=== PATIENT | male | born 1965 | race Two or more races ===

== ENCOUNTER 2017-01-16 06:47 | Emergency (ER) | payer SELFPAY ==
--- NOTE | 2017-01-16 07:05 | ER Document Report ---
HPI - HPI Patient complains to provider of: Medication refill, Onset: Other - 2 days Pain Level: Denies Context: 51 yo obese male here for medication refill, takes lisinopril 20mg daily, ran out 2 weeks ago. Has all over headache, gradual onset 4/5 which he gets when his blood pressure is high. No parathesia, dizziness, chest pain or shortness of breath. No renal hx. Associated Symptoms: Headache Exacerbated by: Denies Relieved by: Denies - ROS ROS below otherwise negative: Yes Systems Reviewed and Negative: Yes All other systems reviewed and negative Past Medical History - General Information source: Patient - Social History Smoking Status: Former Smoker Frequency of alcohol use: None Drug Abuse: None Lives with: Family Family History: Reviewed & Not Pertinent Patient has suicidal ideation: No Patient has homicidal ideation: No - Past Medical History Cardiac Medical History: Reports: Hx Hypertension Renal/ Medical History: Denies: Hx Peritoneal Dialysis Surgical Hx: Negative Vertical Provider Document - CONSTITUTIONAL Agree With Documented VS: Yes Exam Limitations: No Limitations General Appearance: No Apparent Distress - INFECTION CONTROL TRAVEL OUTSIDE OF THE [place] IN LAST 30 DAYS: No - HEENT HEENT: Normal ENT Exam - NECK Neck: Supple - RESPIRATORY Respiratory: Breath Sounds Normal, No Respiratory Distress O2 Sat by Pulse Oximetry: 96 - CARDIOVASCULAR Cardiovascular: Regular Rate, Regular Rhythm - GI/ABDOMEN Gastrointestinal: Abdomen Soft, Abdomen Non-Tender - MUSCULOSKELETAL/EXTREMETIES Musculoskeletal/Extremeties: MAEW, FROM - NEURO Level of Consciousness: Awake, Alert, Appropriate - DERM Integumentary: Warm, Dry, No Rash Course - Re-evaluation Re-evalutation: 01/16/17 08:18 Headache down to 2/5 and blood pressure is lower. Asked the nurse to take a blood pressure with an appropriate sized cuff. The manual is 186/110 when it was taken at the wrist. - Vital Signs Vital signs: Temp Pulse Resp BP Pulse Ox 98.3 F 66 18 234/123 H 96 01/16/17 06:53 01/16/17 06:53 01/16/17 06:53 01/16/17 06:53 01/16/17 06:53 Discharge - Discharge Clinical Impression: Medication refill High blood pressure Qualifiers: Hypertension type: essential hypertension Qualified Code(s): I10 - Essential ( primary) hypertension Headache Qualifiers: Headache type: unspecified Headache chronicity pattern: acute headache Intractability: not intractable Qualified Code(s): R51 - Headache Condition: Good Disposition: HOME, SELF-CARE Instructions: Angiotensin Converting Enzyme Inhibitor Medication ([facility]), Family Physicians / Practices, High Blood Pressure ([facility]), High Blood Pressure, Requiring Treatment ([facility]), Hydrochlorothiazide ([facility]) Additional Instructions: see family practice doctor for you medication to er any concerns tylenol and motrin for headache see neurologist if headaches persists Please complete the patient satisfaction survey if you get one, and return it.. If you do not receive a survey, then you can go to the [facility] website, [email or web address] and place your comments about your very good care. Thank you very much. It was a pleasure being your medical provider today. Prescriptions: Lisinopril/Hydrochlorothiazide [Lisinopril-Hctz 20-12.5 mg Tab] 1 each PO DAILY #30 tablet
[2017-01-16] MEDS ORDERED: ACETAMINOPHEN 325 MG TABLET PO ONE (07:15)
[2017-01-16] MEDS ORDERED: IBUPROFEN 800 MG TABLET PO ONE (07:15)
[2017-01-16 08:31] VITALS: BP 171/103
== END 2017-01-16 08:34 | disposition home or self-care (01) ==
LOC: ER 06:47
DX: I10 Essential (primary) hypertension (principal); Z87.891 Personal history of nicotine dependence
CPT/HCPCS: 99281

== ENCOUNTER 2018-04-06 15:57 | Emergency (ER) | payer MEDICAID ==
[2018-04-06 17:15] LABS: A TYPE INFLUENZA AG NEGATIVE (NEGATIVE); B INFLUENZA AG NEGATIVE (NEGATIVE)
[2018-04-06] MEDS ORDERED: MAG HYDROX/AL HYDROX/SIMETH SUSP 30 ML UDCUP PO ONE (18:33)
[2018-04-06] MEDS ORDERED: LIDOCAINE 2% VISCOUS SOLN 20 ML UDCUP PO ONE (18:33)
[2018-04-06] MEDS ORDERED: METOCLOPRAMIDE HCL ORAL SOLN 10 MG/10 ML UDCUP PO ONE (18:34)
--- NOTE | 2018-04-06 18:39 | ER Document Report ---
HPI - HPI Time Seen by Provider: 04/06/18 18:33 Pain Level: 3 Notes: Patient is a 53-year-old male who presents with multiple complaints. Patient is accompanied by his 3 children, states he and all of them have had low-grade fevers, cough and congestion that started yesterday. Patient also reports epigastric pain ever since he ate a bowl of chili last night for dinner. Patient reports history of acid reflux. Denies any nausea, vomiting or diarrhea. Denies any chest pain. Past Medical History - General Information source: Patient - Social History Smoking Status: Never Smoker Frequency of alcohol use: None Drug Abuse: None Family History: Reviewed & Not Pertinent - Past Medical History Cardiac Medical History: Reports: Hx Hypertension Renal/ Medical History: Denies: Hx Peritoneal Dialysis Vertical Provider Document - CONSTITUTIONAL Notes: PHYSICAL EXAMINATION: GENERAL: Well-appearing, well-nourished and in no acute distress. HEAD: Atraumatic, normocephalic. EYES: Pupils equal round extraocular movements intact, conjunctiva are normal. ENT: Nares patent NECK: Normal range of motion LUNGS: No respiratory distress Musculoskeletal: Normal range of motion NEUROLOGICAL: Normal speech, normal gait. PSYCH: Normal mood, normal affect. SKIN: Warm, Dry, normal turgor, no rashes or lesions noted. - INFECTION CONTROL TRAVEL OUTSIDE OF THE [place] IN LAST 30 DAYS: No Course - Re-evaluation Re-evalutation: EKG was performed, results are sinus rhythm, no ST segment elevations or depressions. Patient was given a GI cocktail, states results solution of his epigastric pain. Otherwise physical examination is unremarkable, likely viral illness consistent with his children's examinations as well. Patient will be discharged home in stable condition. - Vital Signs Vital signs: Temp Pulse Resp BP Pulse Ox 98.9 F 73 20 178/99 H 96 04/06/18 16:12 04/06/18 16:12 04/06/18 16:12 04/06/18 16:12 04/06/18 16:12 Discharge - Discharge Clinical Impression: Viral illness GERD (gastroesophageal reflux disease) Qualifiers: Esophagitis presence: without esophagitis Qualified Code(s): K21.9 - Gastro- esophageal reflux disease without esophagitis Condition: Stable Disposition: HOME, SELF-CARE Additional Instructions: Reflux Disease (GERD) Gastro-Esophageal Reflux Disease (GERD) is caused by stomach acid refluxing back up into the esophagus. The valve at the end of the esophagus may be weak. This is common in persons with a hiatal hernia. GERD symptoms can include indigestion, chest pain, heartburn, or food "sticking." Certain foods, alcohol, and aspirin can make GERD worse. Treatment depends on the severity. Usually, antacids or acid-suppressing medicines are used. When the esophagus is acutely inflamed, the physician will often prescribe membrane-protective drugs such as Carafate. Some patients benefit from medication such as Reglan that tightens the valve at the top of the stomach. Avoid those foods that bring on your symptoms. For many people, these foods are coffee, chocolate, onions, garlic, and carbonated drinks. Don't use alcohol, aspirin, caffeine, or tobacco. Don't eat late at night -- within 4 hours of bedtime. Don't over-eat. If necessary, elevate the head of your bed about 4 inches so that stomach acid will not roll up into your esophagus. Call the doctor if you develop severe chest pain, inability to swallow fluids, fever, or worsening symptoms. UPPER RESPIRATORY ILLNESS: You have a viral infection of the respiratory passages -- a "cold." This common infection causes nasal congestion, drainage, and often sore throat and cough. It is highly contagious. The disease usually lasts about 10 to 14 days. There is no "cure" for the viral infection -- it must run its course. If there is a complication, such as bacterial infection in the nose, sinuses, middle ear, or bronchial tubes, antibiotics may be required. The antibiotics won't affect the virus. Drink plenty of fluids. A humidifier may help. An expectorant medication or decongestant may make you more comfortable. Use acetaminophen or ibuprofen for fever or aches. See the doctor if fever persists over two days, if there is any significant worsening of your symptoms, or if you simply fail to improve as expected. FOLLOW-UP CARE: If you have been referred to a physician for follow-up care, call the physician s office for an appointment as you were instructed or within the next two days. If you experience worsening or a significant change in your symptoms, notify the physician immediately or return to the Emergency Department at any time for re-evaluation. Please purchase an [id number] cough and cold medicine to help with your symptoms. Try to refrain from eating spicy or acidic foods. These may bring on worsening symptoms of the gastric reflux. Take the omeprazole as prescribed. This is also available [id number]. Follow-up with your primary care provider in the next 3-5 days for follow-up. Prescriptions: Lisinopril/Hydrochlorothiazide [Lisinopril-Hctz 20-12.5 mg Tab] 1 each PO DAILY #30 tablet Omeprazole 40 mg PO DAILY #30 capsule.
[2018-04-06 19:38] VITALS: BP 183/90
--- NOTE | 2018-04-07 10:42 | EKG REPORT ---
SEVERITY:- ABNORMAL ECG - SINUS RHYTHM FIRST DEGREE AV BLOCK INCOMPLETE RIGHT BUNDLE BRANCH BLOCK LEFT VENTRICULAR HYPERTROPHY : Confirmed by: Mikie Carrillo 07-Apr-2018 10:41:07
== END 2018-04-06 19:39 | disposition home or self-care (01) ==
LOC: ER 15:57
DX: B34.9 Viral infection, unspecified (principal); K21.9 Gastro-esophageal reflux disease without esophagitis; R50.9 Fever, unspecified; R05 Cough; R68.89 Other general symptoms and signs; I10 Essential (primary) hypertension
CPT/HCPCS: 93005; 99284; 87804; 93010; J3490 ×3

== ENCOUNTER 2018-04-27 11:19 | Day surgery (SDC) | payer MEDICAID ==
[2018-04-27] MEDS ORDERED: ONDANSETRON HCL INJ/PF 4 MG/2 ML SDV ONE (11:32)
[2018-04-27] MEDS ORDERED: DIPHENHYDRAMINE HCL 50 MG/ML VIAL ONE (11:32)
[2018-04-27] MEDS ORDERED: GLUCAGON,HUMAN RECOMB 1 MG INJ ONE (11:33)
[2018-04-27] MEDS ORDERED: FLUMAZENIL INJ 0.5 MG/5 ML VIAL ONE (11:33)
[2018-04-27] MEDS ORDERED: NALOXONE HCL INJ/PF 0.4 MG/1 ML SDV ONE (11:33)
[2018-04-27] MEDS ORDERED: EPINEPHRINE INJ 1 MG/10 ML DISP.SYRIN ONE (11:33)
[2018-04-27] MEDS: MIDAZOLAM 2 MG/2 ML INJ ONE ×3 (12:20→12:34)
[2018-04-27] MEDS: FENTANYL CITRATE INJ/PF 100 MCG/2 ML AMPUL ONE ×3 (12:22→12:30)
--- NOTE | 2018-04-27 12:40 | Operative Report ---
Operative Report DATE OF SURGERY: 04/27/18 Operative Report: The risks benefits and alternatives of the procedure explained to the patient in detail and informed consent is obtained .A GIF Olympus video scope was inserted into the patient's mouth and hypopharynx, the esophagus is identified intubated and insufflated, the scope was then advanced through the esophagus stomach and duodenum. retroflexion maneuver is done the esophagus stomach and first and second portions of the duodenum examined PREOPERATIVE DIAGNOSIS: Dysphagia POSTOPERATIVE DIAGNOSIS: Schatzki's ring status post breakage. Hiatal hernia. Gastritis status post biopsy for Helicobacter pylori. Duodenitis OPERATION: EGD with biopsy SURGEON: CORRINA SHERWOOD ANESTHESIA: Moderate Sedation - 5 mg of Versed, 100 mcg of fentanyl. Conscious sedation monitoring time 30 minutes. TISSUE REMOVED OR ALTERED: As noted above. COMPLICATIONS: None. ESTIMATED BLOOD LOSS: None. INTRAOPERATIVE FINDINGS: As noted above. PROCEDURE: Patient tolerated the procedure well. No immediate postprocedure comp occasions are noted. Patient discharged in good condition. Discharge date 04/27/2018. Discharge diet: Regular. Discharge activity: Regular. 2-3-week follow-up to discuss findings. Patient is to call the office or proceed to the emergency room should there be any further problems or questions. We will wait on the pathology.
[2018-04-27 13:46] VITALS: BP 127/71
== END 2018-04-27 13:50 | disposition home or self-care (01) ==
LOC: END 11:19
PROVIDERS: ATTEND Internal Medicine Gastroenterology
DX: K22.2 Esophageal obstruction (principal); K44.9 Diaphragmatic hernia without obstruction or gangrene; K29.70 Gastritis, unspecified, without bleeding; K29.80 Duodenitis without bleeding; R13.10 Dysphagia, unspecified
CPT/HCPCS: 43239; 88342 ×2; 88305 ×2; J2250; J3010; J0171; J1200; J1610; J2310; J2405; J3490

== ENCOUNTER 2018-08-29 11:21 | Day surgery (SDC) | payer MEDICAID ==
[2018-08-29] MEDS ORDERED: FLUMAZENIL INJ 0.5 MG/5 ML VIAL ONE (11:38)
[2018-08-29] MEDS ORDERED: GLUCAGON,HUMAN RECOMB 1 MG INJ ONE (11:38)
[2018-08-29] MEDS ORDERED: DIPHENHYDRAMINE HCL 50 MG/ML VIAL ONE (11:38)
[2018-08-29] MEDS ORDERED: EPINEPHRINE INJ 1 MG/10 ML DISP.SYRIN ONE (11:38)
[2018-08-29] MEDS ORDERED: ONDANSETRON HCL INJ/PF 4 MG/2 ML SDV ONE (11:38)
[2018-08-29] MEDS ORDERED: NALOXONE HCL INJ/PF 0.4 MG/1 ML SDV ONE (11:38)
[2018-08-29] MEDS: MIDAZOLAM 2 MG/2 ML INJ ONE ×3 (12:27→12:39)
[2018-08-29] MEDS: FENTANYL CITRATE INJ/PF 100 MCG/2 ML AMPUL ONE ×2 (12:29→12:31)
--- NOTE | 2018-08-29 14:35 | Operative Report ---
Operative Report DATE OF SURGERY: 08/29/18 Operative Report: The risks benefits and alternatives of the procedure explained to the patient in detail and informed consent is obtained.A GIF Olympus video scope was inserted into the patient's mouth and hypopharynx, the esophagus is identified intubated and insufflated, the scope was then advanced through the esophagus stomach and duodenum, retroflexion maneuver is done, the esophagus stomach and first and second portions of the duodenum examined PREOPERATIVE DIAGNOSIS: Dysphagia POSTOPERATIVE DIAGNOSIS: Schatzki's ring status post breakage. Hiatal hernia. Gastritis status post biopsy for Helicobacter pylori. Sensitive gag reflex OPERATION: EGD with biopsy SURGEON: CORRINA SHERWOOD ANESTHESIA: Moderate Sedation - 50 mg of fentanyl, 4 mg of Versed, conscious sedation monitoring time is 30 minutes. TISSUE REMOVED OR ALTERED: As noted above. COMPLICATIONS: None. ESTIMATED BLOOD LOSS: None. INTRAOPERATIVE FINDINGS: As noted above. PROCEDURE: Patient tolerated the procedure well. No immediate postprocedure complications are noted. Patient discharged in good condition. Discharge date 08/28/2018. Discharge diet: Regular. Discharge activity: Regular. 2-3-week follow-up to discuss findings. Patient is instructed call the office or proceed to the emergency room should there be any further proximal questions. Wait on the pathology.
[2018-08-29 16:18] VITALS: BP 163/99
== END 2018-08-29 14:30 | disposition home or self-care (01) ==
LOC: END 11:21
PROVIDERS: ATTEND Internal Medicine Gastroenterology
DX: K22.2 Esophageal obstruction (principal); K21.9 Gastro-esophageal reflux disease without esophagitis; K44.9 Diaphragmatic hernia without obstruction or gangrene; K29.50 Unspecified chronic gastritis without bleeding; B96.81 Helicobacter pylori [H. pylori] as the cause of diseases classified elsewhere; J39.2 Other diseases of pharynx; E11.9 Type 2 diabetes mellitus without complications; Z79.4 Long term (current) use of insulin; I10 Essential (primary) hypertension; E78.00 Pure hypercholesterolemia, unspecified; Z79.84 Long term (current) use of oral hypoglycemic drugs; Z79.899 Other long term (current) drug therapy
CPT/HCPCS: 43239; 82962; 88342 ×2; 88305 ×2; J2250; J3010; J0171; J1200; J1610; J2310; J2405; J3490

== ENCOUNTER 2018-12-12 17:00 | Inpatient (IN) | payer MEDICAID ==
--- NOTE | 2018-12-12 18:54 | ER Document Report ---
ED Medical Screen (RME) - General Chief Complaint: Vomiting Stated Complaint: VOMITING Time Seen by Provider: 12/12/18 18:51 Primary Care Provider: MONE JOINER DO [Primary Care Provider] - Follow up as needed Mode of Arrival: Ambulatory Information source: Patient Notes: Patient is a 53-year-old male who just got out of long-term who states that the entire month he was in long-term he was vomiting every day, cannot hold anything down, states he is lost 60 pounds in the past month due to this. Patient states that he initially started vomiting because the water did not taste good and he tried to tell them but they did not care. Patient also states that they gave him nausea medicine but he would vomit it up and they would not give him anything else. He admits to upper abdominal pain on the left and in the middle of his abdomen. He states that he has bowel movement about every other day and that it is diarrhea. TRAVEL OUTSIDE OF THE [place] IN LAST 30 DAYS: No - Related Data Allergies/Adverse Reactions: SHRIMP Allergy (Severe, Uncoded 12/12/18 17:04) Past Medical History - General Information source: Patient - Past Medical History Cardiac Medical History: Reports: Hx Hypertension - MEDICATED Denies: Hx Coronary Artery Disease, Hx Heart Attack Pulmonary Medical History: Reports: Hx COPD - NO INHALERS YET, Hx Pneumonia - SEVERAL MONTHS AGO Denies: Hx Asthma, Hx Bronchitis Neurological Medical History: Denies: Hx Cerebrovascular Accident, Hx Seizures Renal/ Medical History: Denies: Hx Peritoneal Dialysis Musculoskeltal Medical History: Denies Hx Arthritis - Immunizations Hx Diphtheria, Pertussis, Tetanus Vaccination: - UNSURE Review of Systems - Review of Systems Gastrointestinal: See HPI Physical Exam - Vital signs Vitals: Temp Pulse Resp BP Pulse Ox 98.0 F 103 H 12 124/76 98 12/12/18 17:24 12/12/18 17:24 12/12/18 17:24 12/12/18 17:24 12/12/18 17:24 - Notes Notes: PHYSICAL EXAMINATION: GENERAL: Well-appearing and in no acute distress. ABDOMEN: Soft, no tenderness. No guarding, no rebound Course - Vital Signs Vital signs: Temp Pulse Resp BP Pulse Ox 98.0 F 103 H 12 124/76 98 12/12/18 17:24 12/12/18 17:24 12/12/18 17:24 12/12/18 17:24 12/12/18 17:24 Doctor's Discharge - Discharge Referrals: MONE JOINER DO [Primary Care Provider] - Follow up as needed
[2018-12-12 19:46] LABS: ABSOLUTE BASOPHILS # (AUTO) 0.1 10^3/uL (0.0-0.2); ABSOLUTE EOSINOPHILS # (AUTO) 0.3 10^3/uL (0.0-0.6); ABSOLUTE MONOCYTES (AUTO) 0.8 10^3/uL (0.1-1.4); ABSOLUTE NEUT (AUTO) 7.3 10^3/uL (1.7-8.2); APPEARANCE,URINE SLIGHTLY-CLOUDY; BASOPHILS % (AUTO) 0.6 % (0-2); BILIRUBIN,URINE NEGATIVE (NEGATIVE); EOSINOPHILS % (AUTO) 2.3 % (0-6); GLUCOSE, URINE NEGATIVE (NEGATIVE); HEMATOCRIT 43.1 % (37.9-51.0); HEMOGLOBIN 14.2 g/dL (13.5-17.0); KETONES,URINE NEGATIVE (NEGATIVE); LEUKOCYTE ESTERASE,URINE TRACE (NEGATIVE); LYMPHOCYTES % (AUTO) 25.9 % (13-45); MEAN CORPUSCULAR HEMOGLOBIN 29.4 pg (27.0-33.4); MEAN CORPUSCULAR HGB CONC 32.9 g/dL (32.0-36.0); MEAN CORPUSCULAR VOLUME 89 fl (80-97); MONOCYTES % (AUTO) 7.2 % (3-13); NITRITE,URINE NEGATIVE (NEGATIVE); PLATELET COUNT 276 10^3/uL (150-450); PROTEIN,URINE 30 mg/dL (NEGATIVE); RED BLOOD COUNT 4.82 10^6/uL (4.35-5.55); RED CELL DISTRIBUTION WIDTH 15.4 % (11.5-14.0); TOTAL CELLS COUNTED % (AUTO) 100 %; URINE SPECIFIC GRAVITY 1.025; UROBILINOGEN,URINE NEGATIVE mg/dL (<2.0); WHITE BLOOD COUNT 11.4 10^3/uL (4.0-10.5)
[2018-12-12 19:50] LABS: COLOR,URINE YELLOW
[2018-12-12 19:57] LABS: ALANINE AMINOTRANSFERASE 83 U/L (21-72); ALBUMIN 4.7 g/dL (3.5-5.0); ALKALINE PHOSPHATASE 77 U/L (38-126); ANION GAP 14 (5-19); ASPARTATE AMINO TRANSFERASE 50 U/L (17-59); BILIRUBIN,DIRECT 0.2 mg/dL (0.0-0.4); BILIRUBIN,TOTAL 0.5 mg/dL (0.2-1.3); BLOOD UREA NITROGEN 41 mg/dL (7-20); CALCIUM 10.1 mg/dL (8.4-10.2); CARBON DIOXIDE 24 mmol/L (22-30); CHLORIDE 102 mmol/L (98-107); GLUCOSE 109 mg/dL (75-110); POTASSIUM 4.3 mmol/L (3.6-5.0)
[2018-12-12 19:59] LABS: URINE AMPHETAMINES SCREEN NEGATIVE; URINE BARBITURATES SCREEN NEGATIVE; URINE BENZODIAZEPINES SCREEN NEGATIVE; URINE COCAINE SCREEN NEGATIVE; URINE MARIJUANA (THC) SCREEN UNCONFIRMED POSITIVE; URINE METHADONE SCREEN NEGATIVE; URINE PHENCYCLIDINE SCREEN NEGATIVE
[2018-12-13] MEDS ORDERED: ONDANSETRON HCL INJ/PF 4 MG/2 ML SDV IV ONE (01:36)
--- NOTE | 2018-12-13 01:54 | ER Document Report ---
ED General - General Chief Complaint: Vomiting Stated Complaint: VOMITING Time Seen by Provider: 12/12/18 18:51 Primary Care Provider: MONE JOINER DO [Primary Care Provider] - Follow up as needed Mode of Arrival: Ambulatory TRAVEL OUTSIDE OF THE [place] IN LAST 30 DAYS: No - HPI Notes: Patient is a 53-year-old male that presents to the emergency department for chief complaint of vomiting and dehydration. Patient states he got out of a care home center today. He was in there for 1 month. He states the water smelled funny and had an odd taste so he did not want to drink it. He states he drank only milk for the last month. Patient also reports that he has been vomiting almost daily over the last month as well. He states that he has not had any fevers or associated diarrhea. He reports intermittent epigastric abdominal pain. Abdominal pain is worse after eating. Patient states that he was given 5 medications at the care home center but he is not sure what they were. He states 1 of them was a pain pill that was 800 mg twice daily but he is not sure if it was ibuprofen. He has been taking lisinopril for his blood pressure. He denies history of GI issues in the past. Patient does state that he had ulcers on his tongue which are now improving but that was causing him to have a difficult time eating as well. Past Medical History: Hypertension Past Surgical History: Reviewed in chart Social History: marijuana use. denies tobacco and alcohol use Family History: Reviewed and noncontributory for presenting illness Allergies: Reviewed, see documented allergy list. REVIEW OF SYSTEMS: CONSTITUTIONAL : No fever No chills No diaphoresis No recent illness EENT: No vision changes No congestion No sore throat CARDIOVASCULAR: No chest pain No palpitations RESPIRATORY: No shortness of breath No cough No difficulty breathing GASTROINTESTINAL: abdominal pain nausea vomiting No diarrhea GENITOURINARY: No dysuria No hematuria No difficulty urinating MUSCULOSKELETAL: No back pain No leg pain No arm pain SKIN: No rashes No lesions LYMPHATIC: No swollen, enlarged glands. NEUROLOGICAL: No lightheadedness No headache No weakness No paresthesias PSYCHIATRIC: No anxiety No depression PHYSICAL EXAMINATION: Vital signs reviewed, nursing noted reviewed. GENERAL: Well-appearing, obese, and in no acute distress. HEAD: Atraumatic, normocephalic. EYES: Eyes appear normal, extraocular movements intact, sclera anicteric, conjunctiva are normal. ENT: No lingular ulcerations or lesions, nares patent, oropharynx clear without exudates. dry mucous membranes. NECK: Normal range of motion, supple without lymphadenopathy LUNGS: Breath sounds clear to auscultation bilaterally and equal. No wheezes rales or rhonchi. HEART: Tachycardic rate and regular rhythm without murmurs ABDOMEN: Soft, nontender, normoactive bowel sounds. No rebound, guarding, or rigidity. negative murphys sign EXTREMITIES: Nontender, good range of motion, no pitting or edema. NEUROLOGICAL: No focal neurological deficits. Moves all extremities spontaneously Motor and sensory grossly intact on exam. PSYCH: Normal mood, normal affect. SKIN: Warm, Dry, normal turgor, no rashes or lesions noted on exposed skin - Related Data Allergies/Adverse Reactions: SHRIMP Allergy (Severe, Uncoded 12/12/18 17:04) Past Medical History - General Information source: Patient - Social History Smoking Status: Never Smoker Chew tobacco use (# tins/day): No Frequency of alcohol use: None Drug Abuse: None Family History: Reviewed & Not Pertinent Patient has suicidal ideation: No Patient has homicidal ideation: No - Past Medical History Cardiac Medical History: Reports: Hx Hypertension - MEDICATED Denies: Hx Coronary Artery Disease, Hx Heart Attack Pulmonary Medical History: Reports: Hx COPD - NO INHALERS YET, Hx Pneumonia - SEVERAL MONTHS AGO Denies: Hx Asthma, Hx Bronchitis Neurological Medical History: Denies: Hx Cerebrovascular Accident, Hx Seizures Renal/ Medical History: Denies: Hx Peritoneal Dialysis Musculoskeletal Medical History: Denies Hx Arthritis - Immunizations Hx Diphtheria, Pertussis, Tetanus Vaccination: - UNSURE Physical Exam - Vital signs Vitals: Temp Pulse Resp BP Pulse Ox 98.0 F 103 H 12 124/76 98 12/12/18 17:24 12/12/18 17:24 12/12/18 17:24 12/12/18 17:24 12/12/18 17:24 Course - Re-evaluation Re-evalutation: 12/13/18 01:55 Vitals reviewed. Nursing notes reviewed. Clinically patient appears dehydrated and does report no water intake over the last month. His lab work shows acute kidney injury with a creatinine of 2.1 likely secondary to his dehydration. Patient denies known history of renal failure in the past. Patient has been ordered 2 L of IV fluid and Zofran for his dehydration. His abdominal exam is soft with no tenderness. I do not suspect cholecystitis, appendicitis or perforated viscus. Further abdominal imaging not currently indicated. Patient not currently expensing any abdominal pain either. Laboratory 12/12/18 12/12/18 12/12/18 19:20 19:20 19:20 WBC 11.4 H RBC 4.82 Hgb 14.2 Hct 43.1 MCV 89 MCH 29.4 MCHC 32.9 RDW 15.4 H Plt Count 276 Seg Neutrophils % 64.0 Lymphocytes % 25.9 Monocytes % 7.2 Eosinophils % 2.3 Basophils % 0.6 Absolute Neutrophils 7.3 Absolute Lymphocytes 3.0 Absolute Monocytes 0.8 Absolute Eosinophils 0.3 Absolute Basophils 0.1 Sodium 139.5 Potassium 4.3 Chloride 102 Carbon Dioxide 24 Anion Gap 14 BUN 41 H Creatinine 2.10 H Est GFR ( Amer) 40 L Est GFR (Non-Af Amer) 33 L Glucose 109 Calcium 10.1 Total Bilirubin 0.5 Direct Bilirubin 0.2 Neonat Total Bilirubin Not Reportable Neonat Direct Bilirubin Not Reportable Neonat Indirect Bili Not Reportable AST 50 ALT 83 H Alkaline Phosphatase 77 Total Protein 8.0 Albumin 4.7 Lipase 64.7 Urine Color YELLOW Urine Appearance SLIGHTLY-CLOUDY Urine pH 5.0 Ur Specific [place] 1.025 Urine Protein 30 H Urine Glucose (UA) NEGATIVE Urine Ketones NEGATIVE Urine Blood NEGATIVE Urine Nitrite NEGATIVE Urine Bilirubin NEGATIVE Urine Urobilinogen NEGATIVE Ur Leukocyte Esterase TRACE H Urine WBC (Auto) 4 Urine RBC (Auto) 1 U Hyaline Cast (Auto) 18 Urine Bacteria (Auto) TRACE Squamous Epi Cells Auto 1 Urine Mucus (Auto) OCC Urine Ascorbic Acid NEGATIVE Urine Opiates Screen Urine Methadone Screen Ur Barbiturates Screen Ur Phencyclidine Scrn Ur Amphetamines Screen U Benzodiazepines Scrn Urine Cocaine Screen U Marijuana (THC) Screen 12/12/18 19:20 WBC RBC Hgb Hct MCV MCH MCHC RDW Plt Count Seg Neutrophils % Lymphocytes % Monocytes % Eosinophils % Basophils % Absolute Neutrophils Absolute Lymphocytes Absolute Monocytes Absolute Eosinophils Absolute Basophils Sodium Potassium Chloride Carbon Dioxide Anion Gap BUN Creatinine Est GFR ( Amer) Est GFR (Non-Af Amer) Glucose Calcium Total Bilirubin Direct Bilirubin Neonat Total Bilirubin Neonat Direct Bilirubin Neonat Indirect Bili AST ALT Alkaline Phosphatase Total Protein Albumin Lipase Urine Color Urine Appearance Urine pH Ur Specific [place] Urine Protein Urine Glucose (UA) Urine Ketones Urine Blood Urine Nitrite Urine Bilirubin Urine Urobilinogen Ur Leukocyte Esterase Urine WBC (Auto) Urine RBC (Auto) U Hyaline Cast (Auto) Urine Bacteria (Auto) Squamous Epi Cells Auto Urine Mucus (Auto) Urine Ascorbic Acid Urine Opiates Screen NEGATIVE Urine Methadone Screen NEGATIVE Ur Barbiturates Screen NEGATIVE Ur Phencyclidine Scrn NEGATIVE Ur Amphetamines Screen NEGATIVE U Benzodiazepines Scrn NEGATIVE Urine Cocaine Screen NEGATIVE U Marijuana (THC) Screen UNCONFIRMED POSITIVE 12/13/18 03:03 Shortly after placement of peripheral IVs patient began to feel lightheaded and got diaphoretic. He was placed on telemetry monitoring. Patient's heart rate was in the 30s and blood pressure was 80 systolic. I believe this to be a vasovagal episode from peripheral IV placement. He was started on normal saline bolus. Patient's heart rate has improved to the mid 60s and current blood pressure is 124/69. His diaphoresis has resolved. He did not experience any chest pain or dyspnea during this event to suggest underlying ACS. His EKG showed inferior T wave abnormalities with no ST elevation and first-degree AV block. 12/13/18 03:25 Patient reevaluated. His heart rate has started to decline again. Blood pressure has also started to decline to 104 systolic. Patient has continued to feel lightheaded. Nursing staff notes that he had fallen asleep for a minute and respiratory rate dropped to 4 and his O2 dropped to 82%, patient was placed on 2 L which has kept him in the mid to high 90s. He has never been tested for sleep apnea. His care was discussed with Dr. Bolden who will admit him for monitoring of his bradycardia and renal insufficiency. 12/13/18 03:37 Patient's heart rate is now 44 and he will be given a dose of atropine for his bradycardia. 12/13/18 03:56 Patient has had slight improvement with the atropine. His heart rate is maintaining in the 60s currently. He will be admitted for further management. - Vital Signs Vital signs: Temp Pulse Resp BP Pulse Ox 98.0 F 103 H 22 H 115/70 100 12/12/18 17:24 12/12/18 17:24 12/13/18 03:41 12/13/18 03:41 12/13/18 03:41 - Laboratory Result Diagrams: 12/12/18 19:20 12/12/18 19:20 Laboratory results interpreted by me: 12/12/18 12/12/18 12/12/18 19:20 19:20 19:20 WBC 11.4 H RDW 15.4 H BUN 41 H Creatinine 2.10 H Est GFR ( Amer) 40 L Est GFR (Non-Af Amer) 33 L ALT 83 H Urine Protein 30 H Ur Leukocyte Esterase TRACE H - EKG Interpretation by Me Additional EKG results interpreted by me: 12/13/18 03:04 Interpreted by myself [id number]: Normal sinus rhythm, rate 52, normal axis, no STEMI, first-degree AV block, T wave inversion lead III Critical Care Note - Critical Care Note Total time excluding time spent on procedures (mins): 35 Comments: Critical care time 35 exclusive from separate billable procedures for a patient requiring complex medical decision making, and high potential for clinical deterioration. Time spent obtaining history from patient or surrogate, discussions with consultants, development of treatment plan with patient or surrogate, evaluation of patient's response to treatment, examination of patient, ordering and performing treatments and interventions, ordering and review of laboratory studies, re-evaluation of patient's condition, ordering and review of radiographic studies and review of old charts Discharge - Discharge Clinical Impression: Dehydration, Acute kidney injury, Bradycardia, Near syncope Vomiting Qualifiers: Vomiting type: unspecified Vomiting Intractability: non-intractable Nausea presence: with nausea Qualified Code(s): R11.2 - Nausea with vomiting, unspecified Condition: Stable Disposition: ADMITTED OBSERVATION Admitting Provider: Yuan (Hospitalist) Unit Admitted: Telemetry Referrals: MONE JOINER DO [Primary Care Provider] - Follow up as needed
[2018-12-13] MEDS: NORMAL SALINE 1000 ML 1,000 ML IV PRN ×2 (02:56→02:57)
[2018-12-13] MEDS ORDERED: ATROPINE SULFATE INJ 1 MG/1 ML VIAL IV ONE (03:29)
[2018-12-13] MEDS ORDERED: NORMAL SALINE 1000 ML 1,000 ML IV ONE (03:37)
[2018-12-13] MEDS ORDERED: ONDANSETRON HCL INJ/PF 4 MG/2 ML SDV IV PRN (04:05)
[2018-12-13] MEDS ORDERED: MAGNESIUM HYDROXIDE SUSP 30 ML UDCUP PO PRN (04:05)
[2018-12-13] MEDS ORDERED: MAG HYDROX/AL HYDROX/SIMETH SUSP 30 ML UDCUP PO PRN (04:05)
[2018-12-13] MEDS ORDERED: RINGERS SOLUTION,LACTATED 1,000 ML IV PRN (04:05)
[2018-12-13] MEDS ORDERED: ACETAMINOPHEN 325 MG TABLET PO PRN (04:15)
[2018-12-13] MEDS ORDERED: LEVALBUTEROL HCL NEB 0.63 MG/3 ML AMPUL NEB PRN (04:15)
[2018-12-13] MEDS ORDERED: NALBUPHINE HCL INJ 10 MG/1 ML AMPULE IV PRN (04:15)
[2018-12-13] MEDS ORDERED: HYDRALAZINE HCL INJ/PF 20 MG/1 ML SDV IV PRN (04:15)
[2018-12-13] MEDS ORDERED: ACETAMINOPHEN 650 MG SUPP.RECT PR PRN (04:15)
[2018-12-13] MEDS: HEPARIN SOD (PORCINE) 5,000 UNIT/ML 1 ML VIAL SUBCUT SCH ×3 (06:25→21:41)
--- NOTE | 2018-12-13 06:28 | PDOC H&P ---
History of Present Illness Admission Date/PCP: 12/13/2018 03:11 MONE JOINER DO Patient complains of: Vomiting History of Present Illness: MELODY SANCHEZ is a 53 year old male who presents the emergency room with a 1 month history of vomiting with decreased oral intake. He admits that for the last month or so he has been incarcerated in the shelter center and was just released 12/12/2018. He claims the water in the shelter center tasted funny and so he would not drink it and would only drink milk. He reports vomiting virtually every day and experiencing frequent episodes of severe sharp crampy epigastric abdominal pain, without radiation, especially after eating. He also reports that his bowel movements have been loose but occurring one bowel movement about every other day. He also reports associated symptoms of oral sores involving his tongue primarily which are now resolving. He denies prior similar episodes and has not identified any additional aggravating or amelior ating factors for his vomiting. In the emergency room he was found to have a creatinine of 2.1 with a BUN of 40 and no history of prior known renal disease. He was subsequently admitted for further evaluation and treatment. Past Medical History Cardiac Medical History: Reports: Hypertension - MEDICATED Denies: Congestive Heart Failure, Coronary Artery Disease, Myocardial Infarction, Hyperlipidema Pulmonary Medical History: Reports: Chronic Obstructive Pulmonary Disease (COPD), Pneumonia - SEVERAL MONTHS AGO Denies: Asthma, Bronchitis EENT Medical History: Denies: Cataracts, Ears - Hearing aids Neurological Medical History: Denies: Hemorrhagic CVA, Ischemic CVA, Multiple Sclerosis, Seizures Endocrine Medical History: Reports: Obesity Denies: Diabetes Mellitus Type 1, Diabetes Mellitus Type 2, Hyperthyroidism, Hypothyroidism Renal/ Medical History: Denies: Chronic Kidney Disease, Nephrolithiasis Malignancy Medical History: Reports: None GI Medical History: Denies: Cirrhosis, Crohn's Disease, Hepatitis, Ulcerative Colitis Musculoskeltal Medical History: Denies: Arthritis, Gout Skin Medical History: Denies: Eczema, Psoriasis Psychiatric Medical History: Denies: Alcohol Dependency, Substance Abuse, Tobacco Dependency Traumatic Medical History: Reports: None Hematology: Denies: Anemia, Bleeding Tendencies Infectious Medical History: Reports: None Past Surgical History Past Surgical History: Reports: None Social History Information Source: Patient Lives with: Spouse/Significant other, Other - Incarcerated for the last month due to spousal dispute Smoking Status: Never Smoker Frequency of Alcohol Use: Rare Hx Recreational Drug Use: No Drugs: None Hx Prescription Drug Abuse: No - Advance Directive Resuscitation Status: Full Code Surrogate healthcare decision maker:: Patria Abe Family History Family History: CAD, DM, Hypertension, Malignancy Parental Family History Reviewed: Yes Children Family History Reviewed: No Sibling(s) Family History Reviewed.: Yes Medication/Allergy Home Medications: Lisinopril/Hydrochlorothiazide [Lisinopril-Hctz 20-12.5 mg Tab] 1 each PO DAILY #30 tablet 04/06/18 Allergies/Adverse Reactions: SHRIMP Allergy (Severe, Uncoded 12/12/18 17:04) Review of Systems Constitutional: PRESENT: as per HPI, anorexia. ABSENT: chills, fever(s) Eyes: ABSENT: visual disturbances, other - Ocular pain Ears: ABSENT: hearing changes, other - Ear pain Nose, Mouth, and Throat: PRESENT: mouth pain - Due to sores, other - Sores on his tongue. ABSENT: sore throat Cardiovascular: ABSENT: chest pain, palpitations Respiratory: ABSENT: cough, dyspnea Gastrointestinal: PRESENT: as per HPI, abdominal pain, diarrhea - Loose stools every other day, nausea, vomiting. ABSENT: constipation, hematemesis, hematochezia Genitourinary: ABSENT: dysuria, hematuria Musculoskeletal: ABSENT: back pain, joint swelling, muscle weakness Integumentary: ABSENT: pruritus, rash Neurological: ABSENT: confusion, convulsions, focal weakness, memory loss, syncope Psychiatric: ABSENT: anxiety, depression Endocrine: ABSENT: cold intolerance, heat intolerance Hematologic/Lymphatic: ABSENT: easy bleeding, easy bruising Physical Exam Vital Signs: Temp Pulse Resp BP Pulse Ox 98.0 F 103 H 21 H 107/69 100 12/12/18 17:24 12/12/18 17:24 12/13/18 03:22 12/13/18 03:22 12/13/18 03:22 Intake & Output 12/11/18 12/12/18 12/13/18 23:59 23:59 23:59 Intake Total 17 Balance 17 Weight 145.5 kg General appearance: PRESENT: no acute distress, cooperative, morbidly obese Head exam: PRESENT: atraumatic, normocephalic Eye exam: PRESENT: conjunctiva pink. ABSENT: conjunctival injection, scleral icterus Ear exam: PRESENT: normal external ear exam. ABSENT: bleeding, drainage Mouth exam: PRESENT: dry mucosa, neck supple, tongue midline, other - Minimally detectable, healing ulcerative lesions present on the anterior tongue x3 Neck exam: ABSENT: thyromegaly, tracheal deviation Respiratory exam: PRESENT: clear to auscultation emma, symmetrical, unlabored Cardiovascular exam: PRESENT: bradycardia, RRR. ABSENT: clicks, gallop, rubs Pulses: PRESENT: normal radial pulses, normal dorsalis pedis pul Vascular exam: PRESENT: normal capillary refill. ABSENT: pallor GI/Abdominal exam: PRESENT: hypoactive bowel sounds, soft, tenderness - Mild epigastric tenderness to palpation Rectal exam: PRESENT: deferred Extremities exam: ABSENT: joint swelling, pedal edema Musculoskeletal exam: PRESENT: full ROM, normal inspection. ABSENT: tenderness Neurological exam: PRESENT: alert, oriented to person, oriented to place, oriented to time, oriented to situation, CN II-XII grossly intact. ABSENT: motor sensory deficit Psychiatric exam: PRESENT: appropriate affect, normal mood Skin exam: PRESENT: dry, intact, warm. ABSENT: jaundice, rash, urticaria Results Laboratory Results: 12/12/18 19:20 12/12/18 19:20 12/12/18 12/12/18 12/12/18 19:20 19:20 19:20 WBC 11.4 H RBC 4.82 Hgb 14.2 Hct 43.1 MCV 89 MCH 29.4 MCHC 32.9 RDW 15.4 H Plt Count 276 Seg Neutrophils % 64.0 Lymphocytes % 25.9 Monocytes % 7.2 Eosinophils % 2.3 Basophils % 0.6 Absolute Neutrophils 7.3 Absolute Lymphocytes 3.0 Absolute Monocytes 0.8 Absolute Eosinophils 0.3 Absolute Basophils 0.1 Sodium 139.5 Potassium 4.3 Chloride 102 Carbon Dioxide 24 Anion Gap 14 BUN 41 H Creatinine 2.10 H Est GFR ( Amer) 40 L Est GFR (Non-Af Amer) 33 L Glucose 109 Calcium 10.1 Total Bilirubin 0.5 AST 50 ALT 83 H Alkaline Phosphatase 77 Total Protein 8.0 Albumin 4.7 Lipase 64.7 Urine Color YELLOW Urine Appearance SLIGHTLY-CLOUDY Urine pH 5.0 Ur Specific [place] 1.025 Urine Protein 30 H Urine Glucose (UA) NEGATIVE Urine Ketones NEGATIVE Urine Blood NEGATIVE Urine Nitrite NEGATIVE Ur Leukocyte Esterase TRACE H Urine WBC (Auto) 4 Urine RBC (Auto) 1 Assessment and Plan - Diagnosis (1) Elevated serum creatinine Is this a current diagnosis for this admission?: Yes Plan: Patient will be treated with IV fluid resuscitation and rehydration and his renal functions will be reevaluated on a daily basis throughout his hospital course. A daily CBC, metabolic profile and magnesium level will be obtained. (2) Hypotension Qualifiers: Hypotension type: unspecified hypotension type Qualified Code(s): I95.9 - Hypotension, unspecified Is this a current diagnosis for this admission?: Yes Plan: Patient's hypertension was very transient in the emergency room and was accompanied by bradycardia causing suspicion for a vasovagal phenomenon. Adelina choi's blood pressure be monitored closely throughout the remainder of his hospital course and he will be taken off his current antihypertensive medication of Prinzide. (3) Bradycardia Is this a current diagnosis for this admission?: Yes Plan: Patient had a very brief episode of bradycardia in the emergency room, accompanying what appeared to be a vasovagal episode of near syncope and hypotension. The patient's heart rate and blood pressure will be observed closely over the course of his hospital visit and he will be on a panel monitor. (4) Vomiting Qualifiers: Vomiting type: unspecified Vomiting Intractability: non-intractable Naus ea presence: with nausea Qualified Code(s): R11.2 - Nausea with vomiting, unspecified Is this a current diagnosis for this admission?: Yes Plan: Patient be treated symptomatically and supportively for his nausea and vomiting. He will receive antiemetics IV. A surgical consultation will be placed for an endoscopic evaluation of the patient's upper GI tract to evaluate his abdominal pain and persistent vomiting. A upper abdominal ultrasound will also be obtained. (5) Abdominal pain Qualifiers: Abdominal location: epigastric Qualified Code(s): R10.13 - Epigastric pain Is this a current diagnosis for this admission?: Yes Plan: Patient's abdominal pain will be treated with Nubain 10 mg IV every 3 hours as needed for pain. - Time Time Spent with patient: 25-34 minutes Medications reviewed and adjusted accordingly: Yes Anticipated discharge: Home - Inpatient Certification Based on my medical assessment, after consideration of the patient's comorbidi ties, presenting symptoms, or acuity I expect that the services needed warrant INPATIENT care.: Yes I certify that my determination is in accordance with my understanding of Scottie syed's requirements for reasonable and necessary INPATIENT services [42 CFR 412.3e].: Yes Medical Necessity: Need Close Monitoring Due to Risk of Patient Decompensation, Need For IV Fluids, Need For Continuous Telemetry Monitoring, Need for Pain Control, Need for Surgery, Risk of Complication if Not Cared For in Hospital
[2018-12-13 07:07] LABS: VENOUS BLOOD HCO3 28.8 mmol/L (20-32); VENOUS BLOOD PCO2 53.9 mmHg (35-63); VENOUS BLOOD PH 7.35 (7.30-7.42)
[2018-12-13 07:25] LABS: CHOLESTEROL 168.85 mg/dL (0-200); TRIGLYCERIDES 230 mg/dL (<150)
[2018-12-13 07:36] LABS: DIRECT LDL 87 mg/dL (<100)
[2018-12-13 07:43] LABS: FREE T3 4.38 pg/mL (2.77-5.27); FREE T4 (FREE THYROXINE) 0.75 ng/dL (0.78-2.19)
[2018-12-13 07:56] LABS: THYROID STIMULATING HORMONE 1.93 uIU/mL (0.47-4.68)
--- NOTE | 2018-12-13 07:59 | PDOC CONSULTATION ---
Consultation Consult Date: 12/13/18 Provider Consulted: BROOKE LATHAM Consult reason:: abdominal pains with vomiting x 1 month History of Present Illness Admission Date/PCP: 12/13/18 03:32 MONE JOINER DO History of Present Illness: MELODY SANCHEZ is a 53 year old male who was in [facility] for past month and was released yesterday. The first week in [facility] he started to have vomiting after drinking the [facility] water. After this he would c/o vomiting just smelling the water and this time started c/o epigastric pains during or after vomiting. Denies fever or chills. He was then given milk which somehow relieved his vomiting. He is also c/o sores on his tongue and on his front lower gums. His BUN is 41 and Creatinine is 2.1 which indicates he is dehydrated. Past Medical History Cardiac Medical History: Reports: Hypertension - MEDICATED Denies: Congestive Heart Failure, Coronary Artery Disease, Myocardial Infarction, Hyperlipidema Pulmonary Medical History: Reports: Chronic Obstructive Pulmonary Disease (COPD), Pneumonia - SEVERAL MONTHS AGO Denies: Asthma, Bronchitis EENT Medical History: Denies: Cataracts, Ears - Hearing aids Neurological Medical History: Denies: Hemorrhagic CVA, Ischemic CVA, Multiple Sclerosis, Seizures Endocrine Medical History: Reports: Obesity Denies: Diabetes Mellitus Type 1, Diabetes Mellitus Type 2, Hyperthyroidism, Hypothyroidism Renal/ Medical History: Denies: Chronic Kidney Disease, Nephrolithiasis Malignancy Medical History: Reports: None GI Medical History: Denies: Cirrhosis, Crohn's Disease, Hepatitis, Ulcerative Colitis Musculoskeltal Medical History: Denies: Arthritis, Gout Skin Medical History: Denies: Eczema, Psoriasis Psychiatric Medical History: Denies: Alcohol Dependency, Substance Abuse, Tobacco Dependency Traumatic Medical History: Reports: None Hematology: Denies: Anemia, Bleeding Tendencies Infectious Medical History: Reports: None Past Surgical History Past Surgical History: Reports: None Social History Lives with: Spouse/Significant other, Other - Incarcerated for the last month due to spousal dispute Smoking Status: Never Smoker Frequency of Alcohol Use: Rare Hx Recreational Drug Use: No Drugs: None Hx Prescription Drug Abuse: No - Advance Directive Resuscitation Status: Full Code Family History Family History: CAD, DM, Hypertension, Malignancy Parental Family History Reviewed: Yes Children Family History Reviewed: No Sibling(s) Family History Reviewed.: No Medication/Allergy Home Medications: Lisinopril/Hydrochlorothiazide [Lisinopril-Hctz 20-12.5 mg Tab] 1 each PO DAILY #30 tablet 04/06/18 Allergies/Adverse Reactions: SHRIMP Allergy (Severe, Uncoded 12/12/18 17:04) Review of Systems Constitutional: PRESENT: as per HPI Physical Exam Vital Signs: Temp Pulse Resp BP Pulse Ox 98.0 F 103 H 21 H 130/60 H 100 12/12/18 17:24 12/12/18 17:24 12/13/18 06:26 12/13/18 06:26 12/13/18 06:26 Intake & Output 12/12/18 12/13/18 12/14/18 06:59 06:59 06:59 Intake Total 1017 Balance 1017 Weight 145.5 kg General appearance: PRESENT: no acute distress Head exam: PRESENT: atraumatic Eye exam: PRESENT: conjunctiva pink Mouth exam: PRESENT: dry mucosa Neck exam: PRESENT: full ROM Respiratory exam: PRESENT: clear to auscultation emma Cardiovascular exam: PRESENT: RRR Pulses: PRESENT: normal radial pulses Vascular exam: PRESENT: normal capillary refill GI/Abdominal exam: PRESENT: soft - non tender Rectal exam: PRESENT: deferred Musculoskeletal exam: PRESENT: ambulatory Neurological exam: PRESENT: alert, oriented to person, oriented to place, oriented to time, oriented to situation Psychiatric exam: PRESENT: anxious Skin exam: PRESENT: normal color, warm Results Laboratory Results: 12/12/18 19:20 12/12/18 19:20 12/12/18 12/12/18 12/12/18 19:20 19:20 19:20 WBC 11.4 H RBC 4.82 Hgb 14.2 Hct 43.1 MCV 89 MCH 29.4 MCHC 32.9 RDW 15.4 H Plt Count 276 Seg Neutrophils % 64.0 Lymphocytes % 25.9 Monocytes % 7.2 Eosinophils % 2.3 Basophils % 0.6 Absolute Neutrophils 7.3 Absolute Lymphocytes 3.0 Absolute Monocytes 0.8 Absolute Eosinophils 0.3 Absolute Basophils 0.1 VBG pH VBG pCO2 VBG HCO3 VBG Base Excess Sodium 139.5 Potassium 4.3 Chloride 102 Carbon Dioxide 24 Anion Gap 14 BUN 41 H Creatinine 2.10 H Est GFR ( Amer) 40 L Est GFR (Non-Af Amer) 33 L Glucose 109 Lactic Acid Calcium 10.1 Total Bilirubin 0.5 AST 50 ALT 83 H Alkaline Phosphatase 77 Total Protein 8.0 Albumin 4.7 Lipase 64.7 Urine Color YELLOW Urine Appearance SLIGHTLY-CLOUDY Urine pH 5.0 Ur Specific [place] 1.025 Urine Protein 30 H Urine Glucose (UA) NEGATIVE Urine Ketones NEGATIVE Urine Blood NEGATIVE Urine Nitrite NEGATIVE Ur Leukocyte Esterase TRACE H Urine WBC (Auto) 4 Urine RBC (Auto) 1 12/13/18 12/13/18 05:40 06:55 WBC RBC Hgb Hct MCV MCH MCHC RDW Plt Count Seg Neutrophils % Lymphocytes % Monocytes % Eosinophils % Basophils % Absolute Neutrophils Absolute Lymphocytes Absolute Monocytes Absolute Eosinophils Absolute Basophils VBG pH 7.35 VBG pCO2 53.9 VBG HCO3 28.8 VBG Base Excess 2.0 Sodium Potassium Chloride Carbon Dioxide Anion Gap BUN Creatinine Est GFR ( Amer) Est GFR (Non-Af Amer) Glucose Lactic Acid 2.0 Calcium Total Bilirubin AST ALT Alkaline Phosphatase Total Protein Albumin Lipase Urine Color Urine Appearance Urine pH Ur Specific [place] Urine Protein Urine Glucose (UA) Urine Ketones Urine Blood Urine Nitrite Ur Leukocyte Esterase Urine WBC (Auto) Urine RBC (Auto) 12/13/18 03:57 Troponin I < 0.012 Assessment & Plan - Diagnosis (1) Dehydration Is this a current diagnosis for this admission?: Yes (2) Elevated serum creatinine Is this a current diagnosis for this admission?: Yes (3) Vomiting Qualifiers: Vomiting type: unspecified Vomiting Intractability: non-intractable Nausea presence: with nausea Qualified Code(s): R11.2 - Nausea with vomiting, unspecified Is this a current diagnosis for this admission?: Yes - Time Time Spent: 30 to 50 Minutes - Plan Summary Plan Summary: 53 yo male with hypertension and vomiting with some abdominal pains probably from vomiting. Has some lesion on his tongue and gums which likely later on partly caused his nausea/vomiting.He looks dehydrated based on his BUN/Cr. Abdomen is soft. Denies fatty food intolerance. His tongue has whitish discoloration with some throat discomfort which may be fungal as the source. There is no surgical abdomen at this time. Recommend: 1) Continue with hydration 2) Start antifungal mouthwash Will sign off. Call for questions
[2018-12-13] MEDS: PANTOPRAZOLE SODIUM 40 MG VIAL IV SCH ×2 (11:54→14:53)
[2018-12-13] MEDS: DOCUSATE SODIUM 100 MG CAPSULE PO SCH ×2 (11:54→17:46)
--- NOTE | 2018-12-13 13:20 | Progress Note Acknowledgement ---
Progress Note Acknowledgement Progess Note Acknowledgement: I, the undersigned member of the medical staff with appropriate privileges and with supervisory authority over [ PAC ], a dependent practice allied health professional, acknowledge that I have reviewed the progress notes entered on this patient, and in my professional judgment believe that the assessment made and/or any care evidenced was appropriate
--- NOTE | 2018-12-13 13:30 | PDOC PROGRESS REPORT ---
Subjective Progress Note for:: 12/13/18 Subjective:: 12/13/2018 patient is admitted through the emergency room last night for nausea and vomiting. Patient had been incarcerated for 1 month up until yesterday. Patient states that while in incarceration that he was vomiting from "foul" water. Patient states that he has not had any vomiting since yesterday afternoon. Patient denies pain. Patient was found to have a elevated BUN and creatinine potentially from dehydration. Reason For Visit: MAGNOLIA,ABDOMINAL PAIN,VOMITING Physical Exam Vital Signs: Temp Pulse Resp BP Pulse Ox 98.0 F 103 H 16 120/68 100 12/12/18 17:24 12/12/18 17:24 12/13/18 07:51 12/13/18 07:51 12/13/18 07:51 Intake & Output 12/12/18 12/13/18 12/14/18 06:59 06:59 06:59 Intake Total 1017 1000 Balance 1017 1000 Weight 145.5 kg General appearance: PRESENT: no acute distress, well-developed, well-nourished Head exam: PRESENT: atraumatic, normocephalic Eye exam: PRESENT: conjunctiva pink, EOMI, PERRLA. ABSENT: scleral icterus Respiratory exam: PRESENT: clear to auscultation emma. ABSENT: rales, rhonchi, wheezes Cardiovascular exam: PRESENT: RRR. ABSENT: diastolic murmur, rubs, systolic murmur GI/Abdominal exam: PRESENT: normal bowel sounds, soft. ABSENT: distended, guarding, mass, organolmegaly, rebound, tenderness Rectal exam: PRESENT: deferred Neurological exam: PRESENT: alert, awake, oriented to person, oriented to place, oriented to time, oriented to situation, CN II-XII grossly intact. ABSENT: motor sensory deficit Psychiatric exam: PRESENT: appropriate affect, normal mood. ABSENT: homicidal ideation, suicidal ideation Skin exam: PRESENT: dry, intact, warm. ABSENT: cyanosis, rash Results Laboratory Results: 12/12/18 19:20 12/12/18 19:20 12/12/18 12/12/18 12/12/18 19:20 19: 19:20 WBC 11.4 H RBC 4.82 Hgb 14.2 Hct 43.1 MCV 89 MCH 29.4 MCHC 32.9 RDW 15.4 H Plt Count 276 Seg Neutrophils % 64.0 Lymphocytes % 25.9 Monocytes % 7.2 Eosinophils % 2.3 Basophils % 0.6 Absolute Neutrophils 7.3 Absolute Lymphocytes 3.0 Absolute Monocytes 0.8 Absolute Eosinophils 0.3 Absolute Basophils 0.1 VBG pH VBG pCO2 VBG HCO3 VBG Base Excess Sodium 139.5 Potassium 4.3 Chloride 102 Carbon Dioxide 24 Anion Gap 14 BUN 41 H Creatinine 2.10 H Est GFR ( Amer) 40 L Est GFR (Non-Af Amer) 33 L Glucose 109 Lactic Acid Calcium 10.1 Total Bilirubin 0.5 AST 50 ALT 83 H Alkaline Phosphatase 77 Total Protein 8.0 Albumin 4.7 Triglycerides Cholesterol LDL Cholesterol Direct VLDL Cholesterol HDL Cholesterol Lipase 64.7 TSH Free T4 Free T3 pg/mL Urine Color YELLOW Urine Appearance SLIGHTLY-CLOUDY Urine pH 5.0 Ur Specific [place] 1.025 Urine Protein 30 H Urine Glucose (UA) NEGATIVE Urine Ketones NEGATIVE Urine Blood NEGATIVE Urine Nitrite NEGATIVE Ur Leukocyte Esterase TRACE H Urine WBC (Auto) 4 Urine RBC (Auto) 1 12/13/18 12/13/18 12/13/18 05:40 06:55 06:55 WBC RBC Hgb Hct MCV MCH MCHC RDW Plt Count Seg Neutrophils % Lymphocytes % Monocytes % Eosinophils % Basophils % Absolute Neutrophils Absolute Lymphocytes Absolute Monocytes Absolute Eosinophils Absolute Basophils VBG pH VBG pCO2 VBG HCO3 VBG Base Excess Sodium Potassium Chloride Carbon Dioxide Anion Gap BUN Creatinine Est GFR ( Amer) Est GFR (Non-Af Amer) Glucose Lactic Acid 2.0 Calcium Total Bilirubin AST ALT Alkaline Phosphatase Total Protein Albumin Triglycerides 230 H Cholesterol 168.85 LDL Cholesterol Direct 87 VLDL Cholesterol 46.0 H HDL Cholesterol 35 L Lipase TSH 1.93 Free T4 0.75 L Free T3 pg/mL 4.38 Urine Color Urine Appearance Urine pH Ur Specific [place] Urine Protein Urine Glucose (UA) Urine Ketones Urine Blood Urine Nitrite Ur Leukocyte Esterase Urine WBC (Auto) Urine RBC (Auto) 12/13/18 12/13/18 06:55 10:20 WBC RBC Hgb Hct MCV MCH MCHC RDW Plt Count Seg Neutrophils % Lymphocytes % Monocytes % Eosinophils % Basophils % Absolute Neutrophils Absolute Lymphocytes Absolute Monocytes Absolute Eosinophils Absolute Basophils VBG pH 7.35 VBG pCO2 53.9 VBG HCO3 28.8 VBG Base Excess 2.0 Sodium Potassium Chloride Carbon Dioxide Anion Gap BUN Creatinine Est GFR ( Amer) Est GFR (Non-Af Amer) Glucose Lactic Acid 2.4 H Calcium Total Bilirubin AST ALT Alkaline Phosphatase Total Protein Albumin Triglycerides Cholesterol LDL Cholesterol Direct VLDL Cholesterol HDL Cholesterol Lipase TSH Free T4 Free T3 pg/mL Urine Color Urine Appearance Urine pH Ur Specific [place] Urine Protein Urine Glucose (UA) Urine Ketones Urine Blood Urine Nitrite Ur Leukocyte Esterase Urine WBC (Auto) Urine RBC (Auto) 12/13/18 03:57 Troponin I < 0.012 Assessment and Plan - Diagnosis (1) Acute kidney injury Is this a current diagnosis for this admission?: Yes Plan: 11/23/2018 continue IV fluids (2) Dehydration Is this a current diagnosis for this admission?: Yes Plan: 12/13/1909 you IV fluids and repeat labs (3) Elevated serum creatinine Is this a current diagnosis for this admission?: Yes Plan: 12/13/2018 continue IV fluids and repeat chemistries (4) Hypotension Qualifiers: Hypotension type: unspecified hypotension type Qualified Code(s): I95.9 - Hypotension, unspecified Is this a current diagnosis for this admission?: Yes Plan: Patient's hypertension was very transient in the emergency room and was accompanied by bradycardia causing suspicion for a vasovagal phenomenon. Patient's blood pressure be monitored closely throughout the remainder of his hospital course and he will be taken off his current antihypertensive medication of Prinzide. 12/13/2018 no further episodes of hypotension no further episodes of vasovagal episodes. (5) Vomiting Qualifiers: Vomiting type: unspecified Vomiting Intractability: non-intractable Nausea presence: with nausea Qualified Code(s): R11.2 - Nausea with vomiting, unspecified Is this a current diagnosis for this admission?: Yes Plan: Patient be treated symptomatically and supportively for his nausea and vomiting. He will receive antiemetics IV. A surgical consultation will be placed for an endoscopic evaluation of the patient's upper GI tract to evaluate his abdominal pain and persistent vomiting. A upper abdominal ultrasound will also be obtained. 12/13/2018 no further episodes of vomiting since 18 hours ago - Time Time Spent with patient: 15-24 minutes
--- NOTE | 2018-12-13 13:34 | Progress Note ---
Provider Note Provider Note: 12/13/2018 patient has been seen in consultation by general surgery is also reviewed results and agrees with the diagnosis of dehydration and fluid replacement
[2018-12-13 14:08] LABS: ANION GAP 12 (5-19); BLOOD UREA NITROGEN 41 mg/dL (7-20); CALCIUM 9.7 mg/dL (8.4-10.2); CARBON DIOXIDE 23 mmol/L (22-30); CHLORIDE 109 mmol/L (98-107); GLUCOSE 117 mg/dL (75-110); POTASSIUM 4.6 mmol/L (3.6-5.0)
[2018-12-13] MEDS ORDERED: PANTOPRAZOLE SODIUM 40 MG TABLET.DR PO ONE (15:15)
[2018-12-13] MEDS ORDERED: BENZOCAINE/MENTHOL SORE THROAT LOZENGE BUCCAL PRN (18:29)
--- NOTE | 2018-12-14 00:02 | EKG REPORT ---
SEVERITY:- ABNORMAL ECG - SINUS RHYTHM FIRST DEGREE AV BLOCK BORDERLINE T ABNORMALITIES, INFERIOR LEADS : Confirmed by: Mikie Carrillo 14-Dec-2018 00:01:16
[2018-12-14] MEDS: HEPARIN SOD (PORCINE) 5,000 UNIT/ML 1 ML VIAL SUBCUT SCH ×3 (06:25→21:48)
[2018-12-14 06:28] LABS: HEMATOCRIT 35.6 % (37.9-51.0); MEAN CORPUSCULAR HEMOGLOBIN 29.4 pg (27.0-33.4); MEAN CORPUSCULAR HGB CONC 33.2 g/dL (32.0-36.0); MEAN CORPUSCULAR VOLUME 88 fl (80-97); PLATELET COUNT 211 10^3/uL (150-450); RED BLOOD COUNT 4.02 10^6/uL (4.35-5.55); RED CELL DISTRIBUTION WIDTH 15.2 % (11.5-14.0); WHITE BLOOD COUNT 8.2 10^3/uL (4.0-10.5)
[2018-12-14 06:36] LABS: ANION GAP 7 (5-19); BLOOD UREA NITROGEN 29 mg/dL (7-20); CALCIUM 8.8 mg/dL (8.4-10.2); CARBON DIOXIDE 27 mmol/L (22-30); CHLORIDE 103 mmol/L (98-107); GLUCOSE 92 mg/dL (75-110); HEMOGLOBIN 11.8 g/dL (13.5-17.0); POTASSIUM 4.4 mmol/L (3.6-5.0)
[2018-12-14] MEDS: PANTOPRAZOLE SODIUM 40 MG TABLET.DR PO SCH (06:54)
[2018-12-14] MEDS ORDERED: NORMAL SALINE 1000 ML 1,000 ML IV PRN (09:16)
--- NOTE | 2018-12-14 09:18 | Progress Note Acknowledgement ---
Progress Note Acknowledgement Progess Note Acknowledgement: I, the undersigned member of the medical staff with appropriate privileges and with supervisory authority over [Sarthak Rowe], a dependent practice allied health professional, acknowledge that I have reviewed the progress notes entered on this patient, and in my professional judgment believe that the assessment made and/or any care evidenced was appropriate
--- NOTE | 2018-12-14 09:23 | PDOC PROGRESS REPORT ---
Subjective Progress Note for:: 12/14/18 Subjective:: Continues to have abdominal pain slight nausea Reason For Visit: MAGNOLIA,ABDOMINAL PAIN,VOMITING Physical Exam Vital Signs: Temp Pulse Resp BP Pulse Ox 99.1 F 68 18 131/76 H 100 12/14/18 00:00 12/14/18 02:00 12/14/18 00:00 12/14/18 00:00 12/14/18 00:00 Intake & Output 12/13/18 12/14/18 12/15/18 06:59 06:59 06:59 Intake Total 1017 5025 Output Total 2200 Balance 1017 2825 Weight 145.5 kg 145.5 kg General appearance: PRESENT: no acute distress, well-developed, well-nourished Head exam: PRESENT: atraumatic, normocephalic Eye exam: PRESENT: conjunctiva pink, EOMI, PERRLA. ABSENT: scleral icterus Ear exam: PRESENT: normal external ear exam Mouth exam: PRESENT: moist, tongue midline Neck exam: ABSENT: carotid bruit, JVD, lymphadenopathy, thyromegaly Respiratory exam: PRESENT: clear to auscultation emma. ABSENT: rales, rhonchi, wheezes Cardiovascular exam: PRESENT: RRR. ABSENT: diastolic murmur, rubs, systolic murmur Pulses: PRESENT: normal dorsalis pedis pul Vascular exam: PRESENT: normal capillary refill GI/Abdominal exam: PRESENT: hyperactive bowel sounds, normal bowel sounds, soft, tenderness. ABSENT: distended, guarding, mass, organolmegaly, rebound Rectal exam: PRESENT: deferred Extremities exam: PRESENT: full ROM. ABSENT: calf tenderness, clubbing, pedal edema Neurological exam: PRESENT: alert, awake, oriented to person, oriented to place, oriented to time, oriented to situation, CN II-XII grossly intact. ABSENT: motor sensory deficit Psychiatric exam: PRESENT: appropriate affect, normal mood. ABSENT: homicidal ideation, suicidal ideation Skin exam: PRESENT: dry, intact, warm. ABSENT: cyanosis, rash Results Laboratory Results: 12/14/18 05:59 12/14/18 05:59 12/13/18 12/13/18 12/13/18 06:55 10:20 13:38 WBC RBC Hgb Hct MCV MCH MCHC RDW Plt Count Sodium 144.4 Potassium 4.6 Chloride 109 H Carbon Dioxide 23 Anion Gap 12 BUN 41 H Creatinine 2.00 H Est GFR ( Amer) 43 L Est GFR (Non-Af Amer) 35 L Glucose 117 H Lactic Acid 2.4 H 2.5 H Calcium 9.7 Magnesium 12/14/18 12/14/18 05:59 05:59 WBC 8.2 RBC 4.02 L Hgb 11.8 L D Hct 35.6 L MCV 88 MCH 29.4 MCHC 33.2 RDW 15.2 H Plt Count 211 Sodium 137.0 Potassium 4.4 Chloride 103 Carbon Dioxide 27 Anion Gap 7 BUN 29 H Creatinine 1.58 H Est GFR ( Amer) 56 L Est GFR (Non-Af Amer) 46 L Glucose 92 Lactic Acid Calcium 8.8 Magnesium 2.2 12/13/18 03:57 Troponin I < 0.012 Assessment and Plan - Diagnosis (1) Acute kidney injury Is this a current diagnosis for this admission?: Yes Plan: 11/23/2018 continue IV fluids 12/14/2018-patient remains with a creatinine of 1.5. At this time patient is not on IV fluids on when to restart them normal saline at 150 mL an hour. I will repeat BMP in the a.m. (2) Lactic acidosis Is this a current diagnosis for this admission?: Yes Plan: 12/14/2018-unknown etiology. Patient had 2 lactic acids done yesterday with initial 2.4 and subsequent 2.5. At this time patient started on IV fluids. I am going to restart IV fluids at 150 an hour and obtain a repeat lactic acid. If patient likely has remains I will hydrate sufficiently and place patient on Cipro and Flagyl for GI coverage (3) anemia Is this a current diagnosis for this admission?: Yes Plan: 12/14/2018-this could be dilutional in nature. I will repeat CBC in a.m. (4) Vomiting Qualifiers: Vomiting type: unspecified Vomiting Intractability: non-intractable Nausea presence: with nausea Qualified Code(s): R11.2 - Nausea with vomiting, unspecified Is this a current diagnosis for this admission?: Yes Plan: Patient be treated symptomatically and supportively for his nausea and vomiting. He will receive antiemetics IV. A surgical consultation will be placed for an endoscopic evaluation of the patient's upper GI tract to evaluate his abdominal pain and persistent vomiting. A upper abdominal ultrasound will also be obtained. 12/13/2018 no further episodes of vomiting since 18 hours ago 12/14/2018-continue Zofran as needed. - Time Time Spent with patient: 15-24 minutes - Inpatient Certification Based on my medical assessment, after consideration of the patient's comorbidities, presenting symptoms, or acuity I expect that the services needed warrant INPATIENT care.: Yes I certify that my determination is in accordance with my understanding of Medicare's requirements for reasonable and necessary INPATIENT services [42 CFR 412.3e].: Yes Medical Necessity: Other - IV fluids. Continue work-up for ischemic bowel v ersus acute gastritis
[2018-12-14] MEDS ORDERED: ONDANSETRON HCL INJ/PF 4 MG/2 ML SDV IV PRN (09:30)
[2018-12-14] MEDS: DOCUSATE SODIUM 100 MG CAPSULE PO SCH ×2 (09:35→17:55)
[2018-12-15 04:30] LABS: HEMOGLOBIN 11.7 g/dL (13.5-17.0); MEAN CORPUSCULAR HEMOGLOBIN 29.7 pg (27.0-33.4); MEAN CORPUSCULAR HGB CONC 33.5 g/dL (32.0-36.0); MEAN CORPUSCULAR VOLUME 89 fl (80-97); PLATELET COUNT 202 10^3/uL (150-450); RED BLOOD COUNT 3.95 10^6/uL (4.35-5.55); RED CELL DISTRIBUTION WIDTH 15.1 % (11.5-14.0); WHITE BLOOD COUNT 9.6 10^3/uL (4.0-10.5)
[2018-12-15 04:47] LABS: ANION GAP 7 (5-19); BLOOD UREA NITROGEN 22 mg/dL (7-20); CALCIUM 8.7 mg/dL (8.4-10.2); CARBON DIOXIDE 26 mmol/L (22-30); CHLORIDE 106 mmol/L (98-107); GLUCOSE 93 mg/dL (75-110); POTASSIUM 4.5 mmol/L (3.6-5.0)
[2018-12-15] MEDS: PANTOPRAZOLE SODIUM 40 MG TABLET.DR PO SCH (06:22)
[2018-12-15] MEDS: HEPARIN SOD (PORCINE) 5,000 UNIT/ML 1 ML VIAL SUBCUT SCH (06:22)
--- NOTE | 2018-12-15 08:01 | PDOC DISCHARGE SUMMARY ---
General - Admit/Disc Date/PCP Admission Date/Primary Care Provider: 12/13/18 03:32 MONE JOINER, Discharge Date: 12/15/18 - Discharge Diagnosis (1) Acute kidney injury Is this a current diagnosis for this admission?: Yes (2) Lactic acidosis Is this a current diagnosis for this admission?: Yes (3) anemia Is this a current diagnosis for this admission?: Yes (4) Vomiting Is this a current diagnosis for this admission?: Yes - Additional Information Resuscitation Status: Full Code Discharge Diet: As Tolerated Discharge Activity: Activity As Tolerated Home Medications: Lisinopril/Hydrochlorothiazide [Lisinopril-Hctz 20-12.5 mg Tab] 1 each PO Q12 12/13/18 History of Present Illness Patient complains of: None History of Present Illness: MELODY HARRISON is a 53 year old male who was recently incarcerated presented to ER with vomiting acute kidney injury and abdominal pain. Hospital Course Hospital Course: Mr. Harrison is a 53-year-old gentleman who presented after being released from incarceration after having a "month-long" bout of nausea vomiting and dehydration with abdominal pain. Patient was found to have acute kidney injury at that time as well as dehydration and vomiting. Patient was placed in medical surgical floor was given IV fluids and antiemetics. Over the course of patient's hospitalization he showed significant improvement. As of today 12/15/2018 patient's creatinine is returned to normal, patient has no further nausea vomiting, or abdominal pain. Patient will follow up with his primary care practitioner within 7 days. Patient was educated not to eat anything spicy or that would be hard on his stomach for several days. Patient stated understanding of plan of care is in agreements. Physical Exam Vital Signs: Temp Pulse Resp BP Pulse Ox 98.9 F 78 20 119/58 L 100 12/15/18 00:00 12/15/18 02:00 12/15/18 00:00 12/15/18 00:00 12/15/18 00:00 Intake & Output 12/14/18 12/15/18 12/16/18 06:59 06:59 06:59 Intake Total 5025 4201 Output Total 2200 4700 Balance 2825 -499 Weight 145.5 kg 140.2 kg General appearance: PRESENT: no acute distress, well-developed, well-nourished Head exam: PRESENT: atraumatic, normocephalic Eye exam: PRESENT: conjunctiva pink, EOMI, PERRLA. ABSENT: scleral icterus Ear exam: PRESENT: normal external ear exam Mouth exam: PRESENT: moist, tongue midline Neck exam: ABSENT: carotid bruit, JVD, lymphadenopathy, thyromegaly Respiratory exam: PRESENT: clear to auscultation emma. ABSENT: rales, rhonchi, wheezes Cardiovascular exam: PRESENT: RRR. ABSENT: diastolic murmur, rubs, systolic murmur Pulses: PRESENT: normal dorsalis pedis pul Vascular exam: PRESENT: normal capillary refill GI/Abdominal exam: PRESENT: normal bowel sounds, soft. ABSENT: distended, guarding, mass, organolmegaly, rebound, tenderness Rectal exam: PRESENT: deferred Extremities exam: PRESENT: full ROM. ABSENT: calf tenderness, clubbing, pedal edema Neurological exam: PRESENT: alert, awake, oriented to person, oriented to place, oriented to time, oriented to situation, CN II-XII grossly intact. ABSENT: motor sensory deficit Psychiatric exam: PRESENT: appropriate affect, normal mood. ABSENT: homicidal ideation, suicidal ideation Skin exam: PRESENT: dry, intact, warm. ABSENT: cyanosis, rash Results Laboratory Results: 12/15/18 03:56 12/15/18 03:56 12/14/18 12/15/18 12/15/18 09:22 03:56 03:56 WBC 9.6 RBC 3.95 L Hgb 11.7 L Hct 35.0 L MCV 89 MCH 29.7 MCHC 33.5 RDW 15.1 H Plt Count 202 Sodium 138.5 Potassium 4.5 Chloride 106 Carbon Dioxide 26 Anion Gap 7 BUN 22 H Creatinine 1.21 Est GFR ( Amer) > 60 Est GFR (Non-Af Amer) > 60 Glucose 93 Lactic Acid 1.2 Calcium 8.7 Magnesium 2.1 12/13/18 03:57 Troponin I < 0.012 Qualifiers - * PATIENT BEING DISCHARGED WITH ANY OF THE FOLLOWING DIAGNOSIS: No Acute Heart Failure - Is this a Heart Failure Patient?: No Plan Time Spent: Greater than 30 Minutes
[2018-12-15] MEDS: DOCUSATE SODIUM 100 MG CAPSULE PO SCH (11:28)
[2018-12-15 12:18] VITALS: BP 141/79
== END 2018-12-15 13:02 | disposition home or self-care (01) | DRG 683 ==
LOC: ER 17:00 → EH 12-13 03:32 → OBSVTOIN 12-13 03:32 → 5 12-13 16:58
PROVIDERS: ADMIT Emergency Medicine; ATTEND Emergency Medicine
DX: N17.9 Acute kidney failure, unspecified (principal); E87.2 Acidosis; E86.0 Dehydration; D64.9 Anemia, unspecified; I10 Essential (primary) hypertension; J44.9 Chronic obstructive pulmonary disease, unspecified; E66.9 Obesity, unspecified; I95.9 Hypotension, unspecified; Z82.49 Family history of ischemic heart disease and other diseases of the circulatory system; Z91.013 Allergy to seafood; Z79.899 Other long term (current) drug therapy
CPT/HCPCS: 36415; 80048; 80053; 80061; 80307; 81001; 82803; 83605; 83690; 83735; 84439; 84443; 84481; 84484; 85025; 85027; 93005; 93010; 96361; 96374; 96375; 99285; J0461; J1644; J2405; J3490; J7030; S0164

== ENCOUNTER 2018-12-28 02:18 | Inpatient (IN) | payer MEDICAID ==
[2018-12-28] MEDS ORDERED: IPRATROPIUM/ALBUTEROL 0.5-2.5 MG/3 ML AMPUL NEB ONE (02:28)
[2018-12-28] MEDS ORDERED: METHYLPREDNISOLONE INJ 125 MG/2 ML SDV IV ONE (02:28)
[2018-12-28] MEDS: NITROGLYCERIN 0.4 MG/TAB 25 TAB/BOTTLE SL PRN ×2 (02:30→02:40)
[2018-12-28 02:39] LABS: ABSOLUTE BASOPHILS # (AUTO) 0.1 10^3/uL (0.0-0.2); ABSOLUTE EOSINOPHILS # (AUTO) 0.4 10^3/uL (0.0-0.6); ABSOLUTE LYMPHOCYTES (AUTO) 2.4 10^3/uL (0.5-4.7); ABSOLUTE MONOCYTES (AUTO) 0.6 10^3/uL (0.1-1.4); ABSOLUTE NEUT (AUTO) 7.8 10^3/uL (1.7-8.2); BASOPHILS % (AUTO) 0.9 % (0-2); EOSINOPHILS % (AUTO) 3.9 % (0-6); HEMATOCRIT 34.9 % (37.9-51.0); HEMOGLOBIN 11.4 g/dL (13.5-17.0); LYMPHOCYTES % (AUTO) 20.9 % (13-45); MEAN CORPUSCULAR HEMOGLOBIN 29.2 pg (27.0-33.4); MEAN CORPUSCULAR HGB CONC 32.6 g/dL (32.0-36.0); MEAN CORPUSCULAR VOLUME 90 fl (80-97); MONOCYTES % (AUTO) 5.6 % (3-13); PLATELET COUNT 312 10^3/uL (150-450); RED CELL DISTRIBUTION WIDTH 16.4 % (11.5-14.0); SEGMENTED NEUTROPHILS % (AUTO) 68.7 % (42-78); TOTAL CELLS COUNTED % (AUTO) 100 %; WHITE BLOOD COUNT 11.3 10^3/uL (4.0-10.5)
[2018-12-28 02:41] LABS: VENOUS BLOOD BASE EXCESS 2.3 mmol/L; VENOUS BLOOD HCO3 25.7 mmol/L (20-32); VENOUS BLOOD PCO2 36.1 mmHg (35-63); VENOUS BLOOD PH 7.47 (7.30-7.42)
[2018-12-28 03:03] LABS: ALBUMIN 3.9 g/dL (3.5-5.0); ALKALINE PHOSPHATASE 70 U/L (38-126); ANION GAP 8 (5-19); ASPARTATE AMINO TRANSFERASE 81 U/L (17-59); BILIRUBIN,DIRECT 0.3 mg/dL (0.0-0.4); BILIRUBIN,TOTAL 0.7 mg/dL (0.2-1.3); BLOOD UREA NITROGEN 10 mg/dL (7-20); CALCIUM 9.3 mg/dL (8.4-10.2); CARBON DIOXIDE 26 mmol/L (22-30); CHLORIDE 106 mmol/L (98-107); GLUCOSE 122 mg/dL (75-110); POTASSIUM 3.7 mmol/L (3.6-5.0); TOTAL PROTEIN 7.1 g/dL (6.3-8.2)
[2018-12-28 03:17] LABS: TROPONIN I 0.117 ng/mL
[2018-12-28] MEDS ORDERED: NITROGLYCERIN 2% OINTMENT 1 GM PACKET TP ONE (03:18)
[2018-12-28] MEDS ORDERED: ASPIRIN 81 MG TABLET, CHEWABLE PO ONE (03:27)
--- NOTE | 2018-12-28 03:48 | ER Document Report ---
ED Respiratory Problem - General Chief Complaint: Shortness Of Breath Stated Complaint: CHEST PAIN/SHORTNESS OF BREATH Time Seen by Provider: 12/28/18 02:27 Primary Care Provider: MONE JOINER DO [Primary Care Provider] - Follow up as needed Notes: Patient is a 53-year-old male that comes emergency department for chief complaint of difficulty breathing. He states this is worsened over the past couple of days but tonight it became very difficult to breathe. On initial evaluation patient cannot even speak more than a couple of words and is in respiratory distress. He states he has a history of COPD, states he was told on recent admission to the hospital that he had CHF and hypertension. He was prescribed medication for the hypertension. He is not on oxygen, does not smoke anymore, he is not on home inhalers. He denies fever. He denies chest pain. He denies recreational drug use. TRAVEL OUTSIDE OF THE [place] IN LAST 30 DAYS: No - Related Data Allergies/Adverse Reactions: shellfish derived Allergy (Severe, Verified 12/28/18 02:32) Past Medical History - General Information source: Patient - Social History Smoking Status: Former Smoker Frequency of alcohol use: None Drug Abuse: Marijuana Lives with: Alone Family History: CAD, DM, Hypertension, Malignancy Patient has suicidal ideation: No Patient has homicidal ideation: No - Past Medical History Cardiac Medical History: Reports: Hx Congestive Heart Failure, Hx Hypertension - MEDICATED Denies: Hx Coronary Artery Disease, Hx Heart Attack, Hx Hypercholesterolemia Pulmonary Medical History: Reports: Hx COPD, Hx Pneumonia Denies: Hx Asthma, Hx Bronchitis Neurological Medical History: Denies: Hx Cerebrovascular Accident, Hx Seizures Endocrine Medical History: Denies: Hx Diabetes Mellitus Type 1, Hx Diabetes Mellitus Type 2, Hx Hyperthyroidism, Hx Hypothyroidism Renal/ Medical History: Denies: Hx Peritoneal Dialysis GI Medical History: Denies: Hx Cirrhosis, Hx Crohn's Disease, Hx Hepatitis, Hx Ulcerative Colitis Musculoskeletal Medical History: Denies Hx Arthritis, Denies Hx Gout Skin Medical History: Denies Hx Eczema, Denies Hx Psoriasis Infectious Medical History: Denies: Hx Hepatitis - Immunizations Hx Diphtheria, Pertussis, Tetanus Vaccination: - UNSURE Review of Systems - Review of Systems Constitutional: No symptoms reported EENT: No symptoms reported Cardiovascular: See HPI Respiratory: See HPI Gastrointestinal: No symptoms reported Genitourinary: No symptoms reported Male Genitourinary: No symptoms reported Musculoskeletal: No symptoms reported Skin: No symptoms reported Hematologic/Lymphatic: No symptoms reported Neurological/Psychological: No symptoms reported Physical Exam - Vital signs Vitals: Resp BP Pulse Ox 22 H 190/132 H 94 12/28/18 02:26 12/28/18 02:26 12/28/18 02:26 - Notes Notes: GENERAL: Alert but in distress HEAD: Normocephalic, atraumatic. EYES: Pupils equal, round, and reactive to light. Extraocular movements intact. ENT: Oral mucosa moist, tongue midline. Oropharynx unremarkable. Airway patent. LUNGS: Very tight lung sounds, questionable rales in the bases but difficult to auscultate based on patient's body habitus and the tightness of the lungs. Obvious respiratory distress with labored breathing and tachypnea. Difficulty saying several words in a row. No cough HEART: Regular rate and rhythm. No murmur ABDOMEN: Soft, non-tender. Non-distended. EXTREMITIES: Moves all 4 extremities spontaneously. 1+ pitting edema bilaterally. Normal radial and dorsalis pedis pulses bilaterally. No cyanosis. BACK: no cervical, thoracic, lumbar midline tenderness. No saddle anesthesia, normal distal neurovascular exam. Moves all extremities in full range of motion. NEUROLOGICAL: Alert and oriented x3. Normal speech. Cranial nerves II through XII grossly intact. SKIN: Warm, dry, normal turgor. No rashes or lesions noted. Course - Re-evaluation Re-evalutation: Patient in severe respiratory distress on initial evaluation, very tight lung sounds, possible rales in the lower lung burnham. Initial oxygen saturation was 81% on room air, this improved to 85% on oxygen and then slowly up into the 90s. Patient was transitioned from oxygen to BiPAP, initially got a DuoNeb, Solu- Medrol, magnesium, and then with noted lower extremity edema and hypertension patient was given 2 sublingual nitroglycerin and placed on BiPAP. Patient began to rapidly improve, his work of breathing normalized, his hypoxia resolved, his respiratory distress resolved. He will continue to be closely monitored. On reevaluation patient continues to have normal respiratory rate, he is not hypoxic, he states he feels much better. He is still hypertensive. Nitroglycerin paste was placed. CBC unremarkable, chemistry unremarkable, troponin is still in the indeterminate range at 0.114. BNP is elevated at greater than 4000 with a normal creatinine. Patient was given aspirin. He still denies having chest pain. I suspect troponin is somewhat elevated because of demand ischemia from hypoxia and also from the uncontrolled hypertension. Chest x-ray read is still pending, appears to have asymmetric pulmonary edema worse on the right. EKG is nonischemic. Patient was discussed with Dr. Rodriguez. He recommends admission to the hospitalist for mixed CHF and COPD exacerbation with hypoxia. 12/28/18 04:15 Patient is still much improved. Blood pressure is 167 systolic, no respiratory distress, no current complaints. Chest x-ray reading as possible pneumonia, however this is not consistent with patient's presentation, I suspect this is pulmonary edema. Patient has no fever, no sepsis, no cough. I did discuss the patient with Dr. Bolden, patient is admitted to the hospital. Patient states agreement with plan. - Vital Signs Vital signs: Temp Pulse Resp BP Pulse Ox 18 185/110 H 100 12/28/18 03:32 12/28/18 03:32 12/28/18 03:32 - Laboratory Result Diagrams: 12/28/18 02:25 12/28/18 02:25 Laboratory results interpreted by me: 12/28/18 12/28/18 12/28/18 02:25 02:25 02:25 WBC 11.3 H RBC 3.90 L Hgb 11.4 L Hct 34.9 L RDW 16.4 H VBG pH Glucose 122 H AST 81 H NT-Pro-B Natriuret Pep 4660 H 12/28/18 02:25 WBC RBC Hgb Hct RDW VBG pH 7.47 H Glucose AST NT-Pro-B Natriuret Pep Critical Care Note - Critical Care Note Total time excluding time spent on procedures (mins): 40 - Respiratory distress, hypoxia, CHF exacerbation, COPD exacerbation Comments: Please allow 40 minutes of critical care for evaluation and management of patient with respiratory distress, COPD and CHF exacerbations, interventions including oxygen, BiPAP, DuoNeb, steroids, nitroglycerin, Lasix. Time spent reviewing records and interpreting data, time spent performing multiple re-e valuations, time spent admitting to the hospitalist. Discharge - Discharge Clinical Impression: Hypoxia, Respiratory distress, Uncontrolled hypertension, COPD exacerbation CHF exacerbation Qualifiers: Heart failure type: unspecified Qualified Code(s): I50.9 - Heart failure, unspecified Condition: Stable Disposition: ADMITTED INPATIENT Admitting Provider: Yuan (Hospitalist) Unit Admitted: Telemetry Referrals: MONE JOINER DO [Primary Care Provider] - Follow up as needed
--- NOTE | 2018-12-28 03:51 | RADIOLOGY REPORT (SQ) ---
EXAM DESCRIPTION: XR CHEST 1 VIEW COMPLETED DATE/TME: 12/28/2018 02:27 CLINICAL HISTORY: shortness of breath COMPARISON: None. FINDINGS: Single frontal view of the chest. Cardiomediastinal silhouette: Cardiomegaly. Lungs: Right basilar airspace opacity. No pneumothorax or large effusion. Bones: No acute osseous abnormality. Upper abdomen: No abnormality identified. IMPRESSION: 1. Right basilar airspace opacity concerning for pneumonia. Continued radiographic follow-up to resolution recommended. 2. Cardiomegaly.
[2018-12-28] MEDS ORDERED: FUROSEMIDE INJ/PF 40 MG/4 ML SDV IV ONE (04:12)
[2018-12-28] MEDS ORDERED: MAGNESIUM HYDROXIDE SUSP 30 ML UDCUP PO PRN (04:57)
[2018-12-28] MEDS ORDERED: ONDANSETRON HCL INJ/PF 4 MG/2 ML SDV IV PRN (04:57)
[2018-12-28] MEDS ORDERED: MAG HYDROX/AL HYDROX/SIMETH SUSP 30 ML UDCUP PO PRN (04:57)
[2018-12-28] MEDS ORDERED: TORSEMIDE 20 MG TABLET PO ONE (05:03)
[2018-12-28 05:05] LABS: URINE AMPHETAMINES SCREEN NEGATIVE; URINE BARBITURATES SCREEN NEGATIVE; URINE BENZODIAZEPINES SCREEN NEGATIVE; URINE COCAINE SCREEN NEGATIVE; URINE MARIJUANA (THC) SCREEN NEGATIVE; URINE METHADONE SCREEN NEGATIVE; URINE PHENCYCLIDINE SCREEN NEGATIVE
[2018-12-28] MEDS ORDERED: LISINOPRIL 10 MG TABLET PO ONE (05:30)
[2018-12-28] MEDS ORDERED: CARVEDILOL 6.25 MG TABLET PO ONE (05:30)
--- NOTE | 2018-12-28 06:07 | PDOC H&P ---
History of Present Illness Admission Date/PCP: 12/28/18 04:19 MONE JOINER DO Patient complains of: Dyspnea History of Present Illness: MELODY SANCHEZ is a 53 year old male presented to the emergency room with acute dyspnea. Patient admits that for 2 to 3 days he had noted a slight increased difficulty in his breathing, but on the late evening of 12/28/2018 his dyspnea very suddenly and dramatically worsened. His dyspnea is worsened by exertion and was accompanied by diaphoresis. He denies other associated or accompanying signs and symptoms. He admits a prior similar episode due to congestive heart failure that caused him to be admitted to the hospital last month. He denies id entification of any other aggravating or ameliorating factors for his acute dyspnea. He called a cab and arrived at the emergency room with an O2 sat of 81% on room air. In the emergency room he was found to have significant hypoxia and a chest x-ray revealed probable CHF and his BNP was 4660. Patient was treated with BiPAP and nitroglycerin with excellent resolution of his symptomology. He was subsequently admitted to the hospital for further evaluation and treatment. Past Medical History Cardiac Medical History: Reports: Congestive Heart Failure, Hypertension Denies: Coronary Artery Disease, Myocardial Infarction, Hyperlipidema Pulmonary Medical History: Reports: Chronic Obstructive Pulmonary Disease (COPD), Pneumonia Denies: Asthma, Bronchitis EENT Medical History: Denies: Cataracts, Nose - Allergic rhinitis Neurological Medical History: Denies: Hemorrhagic CVA, Ischemic CVA, Multiple Sclerosis, Seizures Endocrine Medical History: Denies: Diabetes Mellitus Type 1, Diabetes Mellitus Type 2, Hyperthyroidism, Hypothyroidism Renal/ Medical History: Denies: Chronic Kidney Disease, Nephrolithiasis Malignancy Medical History: Reports: None GI Medical History: Denies: Cirrhosis, Crohn's Disease, Hepatitis, Ulcerative Colitis Musculoskeltal Medical History: Denies: Arthritis, Gout Skin Medical History: Denies: Eczema, Psoriasis Psychiatric Medical History: Reports: Tobacco Dependency Denies: Alcohol Dependency, Substance Abuse Traumatic Medical History: Reports: None Hematology: Denies: Anemia, Bleeding Tendencies Infectious Medical History: Reports: None Past Surgical History Past Surgical History: Reports: None Social History Information Source: Patient Lives with: Alone Smoking Status: Never Smoker Frequency of Alcohol Use: Rare Hx Recreational Drug Use: No Drugs: None Hx Prescription Drug Abuse: No - Advance Directive Resuscitation Status: Full Code Surrogate healthcare decision maker:: Patria Fihs Family History Family History: CAD, DM, Hypertension, Malignancy Parental Family History Reviewed: Yes Children Family History Reviewed: No Sibling(s) Family History Reviewed.: Yes Medication/Allergy Home Medications: Lisinopril/Hydrochlorothiazide [Lisinopril-Hctz 20-12.5 mg Tab] 1 each PO Q12 12/13/18 Allergies/Adverse Reactions: shellfish derived Allergy (Severe, Verified 12/28/18 02:32) Review of Systems Constitutional: ABSENT: chills, fever(s) Eyes: ABSENT: visual disturbances, other - Eye pain Ears: ABSENT: hearing changes, other - Ear pain Nose, Mouth, and Throat: ABSENT: mouth pain, sore throat Cardiovascular: PRESENT: as per HPI, dyspnea on exertion. ABSENT: chest pain, edema, orthropnea, palpitations Respiratory: PRESENT: as per HPI, dyspnea. ABSENT: cough Gastrointestinal: ABSENT: abdominal pain, constipation, diarrhea, nausea, vomiting Genitourinary: ABSENT: dysuria, hematuria Musculoskeletal: ABSENT: back pain, joint swelling, muscle weakness Integumentary: ABSENT: pruritus, rash Neurological: ABSENT: confusion, convulsions, focal weakness, memory loss, syncope Psychiatric: ABSENT: anxiety, depression Endocrine: ABSENT: cold intolerance, heat intolerance Hematologic/Lymphatic: ABSENT: easy bleeding, easy bruising Allergic/Immunologic: ABSENT: seasonal rhinorrhea Physical Exam Vital Signs: Temp Pulse Resp BP Pulse Ox 18 185/110 H 100 12/28/18 03:32 12/28/18 03:32 12/28/18 03:32 General appearance: PRESENT: no acute distress, cooperative, morbidly obese, other - On BiPAP Head exam: PRESENT: atraumatic, normocephalic Eye exam: PRESENT: conjunctiva pink. ABSENT: conjunctival injection, scleral icterus Ear exam: PRESENT: normal external ear exam. ABSENT: bleeding, drainage Mouth exam: PRESENT: dry mucosa, neck supple Neck exam: ABSENT: JVD, thyromegaly, tracheal deviation Respiratory exam: PRESENT: decreased breath sounds - Bilateral bases, rales - Bibasilar rales lower half of both lung burn[place], symmetrical, other - To percussion bilateral bases. ABSENT: tachypnea, wheezes Cardiovascular exam: PRESENT: gallop - S4 gallop rhythm, RRR. ABSENT: clicks, rubs Pulses: PRESENT: normal radial pulses, normal dorsalis pedis pul Vascular exam: PRESENT: normal capillary refill. ABSENT: pallor GI/Abdominal exam: PRESENT: normal bowel sounds, soft. ABSENT: tenderness Rectal exam: PRESENT: deferred Extremities exam: ABSENT: joint swelling, pedal edema Musculoskeletal exam: PRESENT: full ROM, normal inspection. ABSENT: tenderness Neurological exam: PRESENT: alert, oriented to person, oriented to place, or iented to time, oriented to situation, CN II-XII grossly intact. ABSENT: motor sensory deficit Psychiatric exam: PRESENT: appropriate affect, normal mood Skin exam: PRESENT: dry, intact, warm. ABSENT: jaundice, rash, urticaria Results Laboratory Results: 12/28/18 02:25 12/28/18 02:25 12/28/18 12/28/18 12/28/18 02:25 02:25 02:25 WBC 11.3 H RBC 3.90 L Hgb 11.4 L Hct 34.9 L MCV 90 MCH 29.2 MCHC 32.6 RDW 16.4 H Plt Count 312 Seg Neutrophils % 68.7 Lymphocytes % 20.9 Monocytes % 5.6 Eosinophils % 3.9 Basophils % 0.9 Absolute Neutrophils 7.8 Absolute Lymphocytes 2.4 Absolute Monocytes 0.6 Absolute Eosinophils 0.4 Absolute Basophils 0.1 VBG pH 7.47 H VBG pCO2 36.1 VBG HCO3 25.7 VBG Base Excess 2.3 Sodium 140.2 Potassium 3.7 Chloride 106 Carbon Dioxide 26 Anion Gap 8 BUN 10 Creatinine 0.91 Est GFR ( Amer) > 60 Est GFR (Non-Af Amer) > 60 Glucose 122 H Calcium 9.3 Total Bilirubin 0.7 AST 81 H Alkaline Phosphatase 70 Total Protein 7.1 Albumin 3.9 12/28/18 02:25 Troponin I 0.117 NT-Pro-B Natriuret Pep 4660 H Impressions: Chest X-Ray 12/28/18 02:27 IMPRESSION: 1. Right basilar airspace opacity concerning for pneumonia. Continued radiographic follow-up to resolution recommended. 2. Cardiomegaly. Assessment and Plan - Diagnosis (1) Acute pulmonary edema with congestive heart failure Is this a current diagnosis for this admission?: Yes Plan: Patient's acute pulmonary edema was treated in the ER with BiPAP and nitroglycerin. Patient is responded well and will be continued on BiPAP and nitroglycerin paste during his initial hospital course. After a course of intravenous diuretic therapy patient should be able to tolerate being off BiPAP. He will be monitored closely in the IMCU. If patient becomes more dyspneic he will receive morphine sulfate 2 mg IV every 2 hours on a as needed basis for inc reased dyspnea. (2) Acute respiratory failure with hypoxia Is this a current diagnosis for this admission?: Yes Plan: Patient be continued on BiPAP therapy as long as required for maintenance of adequate oxygenation. He will be given supplemental oxygen and will perform required to maintain an adequate O2 saturation throughout his hospital course. His O2 sat will be monitored on a regular basis with vital signs. (3) CHF exacerbation Qualifiers: Heart failure type: unspecified Qualified Code(s): I50.9 - Heart failure, unspecified Is this a current diagnosis for this admission?: Yes Plan: Patient will have a echocardiogram performed during his hospital course. He will be treated with intravenous diuretics initially and will be placed on appropriate therapeutic regiment for his congestive heart failure. (4) Elevated troponin I level Is this a current diagnosis for this admission?: Yes Plan: Patient's serum troponin levels will be followed on a serial basis as well his CPK and CK-MB. (5) Hypertension Qualifiers: Hypertension type: unspecified Qualified Code(s): I10 - Essential (primary) hypertension Is this a current diagnosis for this admission?: Yes Plan: Patient will be treated for his hypertension as part of treatment of his congestive heart failure. His blood pressure be monitored closely throughout his hospital course. - Time Time Spent with patient: 25-34 minutes Medications reviewed and adjusted accordingly: Yes Anticipated discharge: Home - Inpatient Certification Based on my medical assessment, after consideration of the patient's comorbidities, presenting symptoms, or acuity I expect that the services needed warrant INPATIENT care.: Yes I certify that my determination is in accordance with my understanding of Medicare's requirements for reasonable and necessary INPATIENT services [42 CFR 412.3e].: Yes Medical Necessity: Significant Comorbidiites Make Outpatient Treatment Too Risky, Need Close Monitoring Due to Risk of Patient Decompensation, Need For Continuous Telemetry Monitoring, Risk of Complication if Not Cared For in Hospital, Risk of Diagnosis Which Will Require Inpatient Eval/Care/Monitoring
[2018-12-28] MEDS: HEPARIN SOD (PORCINE) 5,000 UNIT/ML 1 ML VIAL SUBCUT SCH ×3 (06:17→21:25)
[2018-12-28 06:28] LABS: ARTERIAL BLOOD BASE EXCESS 1.9 mmol/L; ARTERIAL BLOOD H2CO3 1.26 mmol/L (1.05-1.35); ARTERIAL BLOOD HCO3 26.6 mmol/L (20-24); ARTERIAL BLOOD O2 SATURATION 64.8 % (94-98); ARTERIAL BLOOD PCO2 41.9 mmHg (35-45); ARTERIAL BLOOD PH 7.42 (7.35-7.45); ARTERIAL BLOOD TOTAL CO2 27.9 mmol/L (23-27)
[2018-12-28 06:29] LABS: ARTERIAL BLOOD FIO2 3L
[2018-12-28 06:31] LABS: ARTERIAL BLOOD PO2 33.1 mmHg (80-100)
--- NOTE | 2018-12-28 08:02 | EKG REPORT ---
SEVERITY:- ABNORMAL ECG - SINUS TACHYCARDIA ATRIAL PREMATURE COMPLEX LEFT AXIS DEVIATION ABNRM R PROG, CONSIDER ASMI OR LEAD PLACEMENT : Confirmed by: Randy Ortiz MD 28-Dec-2018 08:01:38
--- NOTE | 2018-12-28 09:04 | Progress Note ---
Provider Note Provider Note: Patient admitted early a.m. Awaiting echocardiogram at this time. when echo returns I will be able to make decision on type of heart failure and make adjustments medications as appropriate. Patient much more comfortable at this time with breathing. No distress not on BiPAP lungs diminished but slight rales in the bases.
[2018-12-28] MEDS ORDERED: LISINOPRIL 10 MG TABLET PO SCH (10:00)
[2018-12-28] MEDS ORDERED: CARVEDILOL 6.25 MG TABLET PO SCH (10:00)
[2018-12-28] MEDS: DOCUSATE SODIUM 100 MG CAPSULE PO SCH ×2 (10:20→18:18)
[2018-12-28] MEDS: FAMOTIDINE 20 MG TABLET PO SCH ×2 (10:20→21:24)
[2018-12-28 10:21] LABS: CREATINE KINASE MB 1.56 ng/mL (<4.55); TROPONIN I 0.107 ng/mL
[2018-12-28] MEDS: FUROSEMIDE INJ/PF 40 MG/4 ML SDV IV SCH ×2 (10:21→18:18)
--- NOTE | 2018-12-28 12:51 | EKG REPORT ---
SEVERITY:- ABNORMAL ECG - SINUS RHYTHM FIRST DEGREE AV BLOCK LEFT AXIS DEVIATION PROLONGED QT INTERVAL : Confirmed by: Randy Ortiz MD 28-Dec-2018 12:50:15
[2018-12-28 15:59] LABS: CREATINE KINASE MB 1.06 ng/mL (<4.55); TROPONIN I 0.066 ng/mL
[2018-12-28 21:02] LABS: CREATINE KINASE MB 0.75 ng/mL (<4.55)
[2018-12-28 21:21] LABS: TROPONIN I 0.056 ng/mL
[2018-12-28] MEDS: CARVEDILOL 6.25 MG TABLET PO SCH (21:24)
[2018-12-28] MEDS: LISINOPRIL 10 MG TABLET PO SCH (21:25)
[2018-12-28] MEDS ORDERED: ACETAMINOPHEN 325 MG TABLET PO PRN (21:47)
[2018-12-28] MEDS: NALBUPHINE HCL INJ 10 MG/1 ML AMPULE IV PRN (22:05)
[2018-12-29] MEDS: NALBUPHINE HCL INJ 10 MG/1 ML AMPULE IV PRN ×2 (04:07→19:51)
[2018-12-29 05:04] LABS: HEMATOCRIT 32.5 % (37.9-51.0); HEMOGLOBIN 10.9 g/dL (13.5-17.0); MEAN CORPUSCULAR HEMOGLOBIN 29.9 pg (27.0-33.4); MEAN CORPUSCULAR HGB CONC 33.5 g/dL (32.0-36.0); MEAN CORPUSCULAR VOLUME 89 fl (80-97); PLATELET COUNT 301 10^3/uL (150-450); RED BLOOD COUNT 3.65 10^6/uL (4.35-5.55); RED CELL DISTRIBUTION WIDTH 16.6 % (11.5-14.0); WHITE BLOOD COUNT 12.3 10^3/uL (4.0-10.5)
[2018-12-29] MEDS: HEPARIN SOD (PORCINE) 5,000 UNIT/ML 1 ML VIAL SUBCUT SCH ×3 (05:05→21:35)
[2018-12-29 05:13] LABS: ANION GAP 11 (5-19); BLOOD UREA NITROGEN 19 mg/dL (7-20); CALCIUM 9.1 mg/dL (8.4-10.2); CARBON DIOXIDE 31 mmol/L (22-30); CHLORIDE 97 mmol/L (98-107); GLUCOSE 111 mg/dL (75-110); POTASSIUM 3.8 mmol/L (3.6-5.0)
--- NOTE | 2018-12-29 08:58 | PDOC PROGRESS REPORT ---
Subjective Progress Note for:: 12/29/18 Subjective:: Neuropathic type pain on the left leg from the hip down Reason For Visit: ACUTE PULMONARY EDEMA, ACUTE RESPIRATORY FAILURE Physical Exam Vital Signs: Temp Pulse Resp BP Pulse Ox 97.5 F 58 L 16 149/91 H 96 12/29/18 07:31 12/29/18 07:31 12/29/18 07:31 12/29/18 07:31 12/29/18 07:31 Intake & Output 12/28/18 12/29/18 12/30/18 06:59 06:59 06:59 Intake Total 0 1333 Output Total 3800 Balance 0 -2467 Weight 160.4 kg 151.6 kg General appearance: PRESENT: no acute distress, well-developed, well-nourished Head exam: PRESENT: atraumatic, normocephalic Eye exam: PRESENT: conjunctiva pink, EOMI, PERRLA. ABSENT: scleral icterus Ear exam: PRESENT: normal external ear exam Mouth exam: PRESENT: moist, tongue midline Neck exam: ABSENT: carotid bruit, JVD, lymphadenopathy, thyromegaly Respiratory exam: PRESENT: clear to auscultation emma. ABSENT: rales, rhonchi, wheezes Cardiovascular exam: PRESENT: RRR. ABSENT: diastolic murmur, rubs, systolic murmur Pulses: PRESENT: normal dorsalis pedis pul Vascular exam: PRESENT: normal capillary refill GI/Abdominal exam: PRESENT: normal bowel sounds, soft. ABSENT: distended, guarding, mass, organolmegaly, rebound, tenderness Rectal exam: PRESENT: deferred Extremities exam: PRESENT: full ROM. ABSENT: calf tenderness, clubbing, pedal edema Neurological exam: PRESENT: alert, awake, oriented to person, oriented to place, oriented to time, oriented to situation, CN II-XII grossly intact. ABSENT: motor sensory deficit Psychiatric exam: PRESENT: appropriate affect, normal mood. ABSENT: homicidal ideation, suicidal ideation Skin exam: PRESENT: dry, intact, warm. ABSENT: cyanosis, rash Results Laboratory Results: 12/29/18 03:57 12/29/18 03:57 12/29/18 12/29/18 03:57 03:57 WBC 12.3 H RBC 3.65 L Hgb 10.9 L Hct 32.5 L MCV 89 MCH 29.9 MCHC 33.5 RDW 16.6 H Plt Count 301 Sodium 139.0 Potassium 3.8 Chloride 97 L Carbon Dioxide 31 H Anion Gap 11 BUN 19 Creatinine 1.16 Est GFR ( Amer) > 60 Est GFR (Non-Af Amer) > 60 Glucose 111 H Calcium 9.1 Magnesium 2.1 12/28/18 12/28/18 12/28/18 02:25 09:21 09:21 Creatine Kinase 233 H CK-MB (CK-2) 1.56 Troponin I 0.117 0.107 NT-Pro-B Natriuret Pep 4660 H 12/28/18 12/28/18 12/28/18 14:45 14:45 20:22 Creatine Kinase 181 H 157 CK-MB (CK-2) 1.06 Troponin I 0.066 NT-Pro-B Natriuret Pep 12/28/18 20:22 Creatine Kinase CK-MB (CK-2) 0.75 Troponin I 0.056 NT-Pro-B Natriuret Pep Impressions: Chest X-Ray 12/28/18 02:27 IMPRESSION: 1. Right basilar airspace opacity concerning for pneumonia. Continued radiographic follow-up to resolution recommended. 2. Cardiomegaly. Assessment and Plan - Diagnosis (1) Acute pulmonary edema with congestive heart failure Is this a current diagnosis for this admission?: Yes Plan: Patient's acute pulmonary edema was treated in the ER with BiPAP and nitroglycerin. Patient is responded well and will be continued on BiPAP and n itroglycerin paste during his initial hospital course. After a course of intravenous diuretic therapy patient should be able to tolerate being off BiPAP. He will be monitored closely in the IMCU. If patient becomes more dyspneic he will receive morphine sulfate 2 mg IV every 2 hours on a as needed basis for increased dyspnea. December 29, 2018-patient continues on current therapy. Awaiting echocardiogram results to determine type of heart failure for proper treatment. (2) Acute respiratory failure with hypoxia Is this a current diagnosis for this admission?: Yes Plan: Patient be continued on BiPAP therapy as long as required for maintenance of adequate oxygenation. He will be given supplemental oxygen and will perform required to maintain an adequate O2 saturation throughout his hospital course. His O2 sat will be monitored on a regular basis with vital signs. December 29, 2018-resolved (3) Elevated troponin I level Is this a current diagnosis for this admission?: Yes Plan: Patient's serum troponin levels will be followed on a serial basis as well his CPK and CK-MB. December 29, 2018-trending down stable. (4) Sciatica Is this a current diagnosis for this admission?: Yes Plan: December 29, 2018-patient complaining of pain from his left hip migrating down his left leg to the foot with tingling sensation into foot. At this time place patient on Lyrica 50 mill grams p.o. twice daily. Titrate to effect - Time Time Spent with patient: 15-24 minutes - Inpatient Certification Based on my medical assessment, after consideration of the patient's comorbidities, presenting symptoms, or acuity I expect that the services needed warrant INPATIENT care.: Yes I certify that my determination is in accordance with my understanding of Medicare's requirements for reasonable and necessary INPATIENT services [42 CFR 412.3e].: Yes Medical Necessity: Other - IV Lasix, echocardiogram results
[2018-12-29] MEDS: FAMOTIDINE 20 MG TABLET PO SCH ×2 (09:31→21:34)
[2018-12-29] MEDS: DOCUSATE SODIUM 100 MG CAPSULE PO SCH ×2 (09:31→18:54)
[2018-12-29] MEDS: PREGABALIN 50 MG CAPSULE PO SCH ×2 (09:32→18:54)
[2018-12-29] MEDS: CARVEDILOL 6.25 MG TABLET PO SCH ×2 (09:32→21:34)
[2018-12-29] MEDS: LISINOPRIL 10 MG TABLET PO SCH ×2 (09:32→21:34)
[2018-12-29] MEDS: FUROSEMIDE INJ/PF 40 MG/4 ML SDV IV SCH ×2 (09:32→18:54)
[2018-12-29] MEDS ORDERED: TORSEMIDE 20 MG TABLET PO SCH (10:00)
[2018-12-30] MEDS: HEPARIN SOD (PORCINE) 5,000 UNIT/ML 1 ML VIAL SUBCUT SCH ×3 (05:26→21:24)
[2018-12-30 05:47] LABS: HEMOGLOBIN 11.4 g/dL (13.5-17.0); MEAN CORPUSCULAR HGB CONC 33.6 g/dL (32.0-36.0); MEAN CORPUSCULAR VOLUME 89 fl (80-97); PLATELET COUNT 312 10^3/uL (150-450); RED BLOOD COUNT 3.82 10^6/uL (4.35-5.55); RED CELL DISTRIBUTION WIDTH 16.7 % (11.5-14.0); WHITE BLOOD COUNT 9.6 10^3/uL (4.0-10.5)
[2018-12-30 06:06] LABS: ANION GAP 8 (5-19); BLOOD UREA NITROGEN 23 mg/dL (7-20); CALCIUM 9.2 mg/dL (8.4-10.2); CARBON DIOXIDE 32 mmol/L (22-30); CHLORIDE 98 mmol/L (98-107); GLUCOSE 93 mg/dL (75-110); POTASSIUM 3.8 mmol/L (3.6-5.0)
[2018-12-30] MEDS: LISINOPRIL 10 MG TABLET PO SCH ×2 (09:22→21:24)
[2018-12-30] MEDS: CARVEDILOL 6.25 MG TABLET PO SCH ×2 (09:22→21:24)
[2018-12-30] MEDS: FAMOTIDINE 20 MG TABLET PO SCH ×2 (09:22→21:24)
[2018-12-30] MEDS: DOCUSATE SODIUM 100 MG CAPSULE PO SCH ×2 (09:22→17:49)
[2018-12-30] MEDS: PREGABALIN 50 MG CAPSULE PO SCH ×2 (09:22→17:49)
[2018-12-30] MEDS: FUROSEMIDE INJ/PF 40 MG/4 ML SDV IV SCH ×2 (09:24→17:49)
--- NOTE | 2018-12-30 09:33 | PDOC PROGRESS REPORT ---
Subjective Progress Note for:: 12/30/18 Subjective:: Neuropathic type pain on the left leg from the hip down December 30, 2018-improvement in neuropathic pain today. Reason For Visit: ACUTE PULMONARY EDEMA, ACUTE RESPIRATORY FAILURE Physical Exam Vital Signs: Temp Pulse Resp BP Pulse Ox 97.4 F 70 16 142/88 H 98 12/30/18 07:47 12/30/18 07:47 12/30/18 07:47 12/30/18 07:47 12/30/18 07:47 Intake & Output 12/29/18 12/30/18 12/31/18 06:59 06:59 06:59 Intake Total 1333 1066 Output Total 3800 7210 Balance -1787 -7702 Weight 151.6 kg 151.5 kg General appearance: PRESENT: no acute distress, well-developed, well-nourished Head exam: PRESENT: atraumatic, normocephalic Eye exam: PRESENT: conjunctiva pink, EOMI, PERRLA. ABSENT: scleral icterus Ear exam: PRESENT: normal external ear exam Mouth exam: PRESENT: moist, tongue midline Neck exam: ABSENT: carotid bruit, JVD, lymphadenopathy, thyromegaly Respiratory exam: PRESENT: clear to auscultation emma. ABSENT: rales, rhonchi, wheezes Cardiovascular exam: PRESENT: RRR. ABSENT: diastolic murmur, rubs, systolic murmur Pulses: PRESENT: normal dorsalis pedis pul Vascular exam: PRESENT: normal capillary refill GI/Abdominal exam: PRESENT: normal bowel sounds, soft. ABSENT: distended, guarding, mass, organolmegaly, rebound, tenderness Rectal exam: PRESENT: deferred Extremities exam: PRESENT: full ROM. ABSENT: calf tenderness, clubbing, pedal edema Neurological exam: PRESENT: alert, awake, oriented to person, oriented to place, oriented to time, oriented to situation, CN II-XII grossly intact. ABSENT: motor sensory deficit Psychiatric exam: PRESENT: appropriate affect, normal mood. ABSENT: homicidal ideation, suicidal ideation Skin exam: PRESENT: dry, intact, warm. ABSENT: cyanosis, rash Results Laboratory Results: 12/30/18 05:20 12/30/18 05:20 12/30/18 12/30/18 05:20 05:20 WBC 9.6 RBC 3.82 L Hgb 11.4 L Hct 34.0 L MCV 89 MCH 30.0 MCHC 33.6 RDW 16.7 H Plt Count 312 Sodium 138.4 Potassium 3.8 Chloride 98 Carbon Dioxide 32 H Anion Gap 8 BUN 23 H Creatinine 1.05 Est GFR ( Amer) > 60 Est GFR (Non-Af Amer) > 60 Glucose 93 Calcium 9.2 Magnesium 2.1 12/28/18 12/28/18 12/28/18 02:25 09:21 09:21 Creatine Kinase 233 H CK-MB (CK-2) 1.56 Troponin I 0.117 0.107 NT-Pro-B Natriuret Pep 4660 H 12/28/18 12/28/18 12/28/18 14:45 14:45 20:22 Creatine Kinase 181 H 157 CK-MB (CK-2) 1.06 Troponin I 0.066 NT-Pro-B Natriuret Pep 12/28/18 20:22 Creatine Kinase CK-MB (CK-2) 0.75 Troponin I 0.056 NT-Pro-B Natriuret Pep Impressions: Chest X-Ray 12/28/18 02:27 IMPRESSION: 1. Right basilar airspace opacity concerning for pneumonia. Continued radiographic follow-up to resolution recommended. 2. Cardiomegaly. Assessment and Plan - Diagnosis (1) Acute pulmonary edema with congestive heart failure Is this a current diagnosis for this admission?: Yes Plan: Patient's acute pulmonary edema was treated in the ER with BiPAP and nitroglycerin. Patient is responded well and will be continued on BiPAP and nitroglycerin paste during his initial hospital course. After a course of intravenous diuretic therapy patient should be able to tolerate being off BiPAP. He will be monitored closely in the IMCU. If patient becomes more dyspneic he will receive morphine sulfate 2 mg IV every 2 hours on a as needed basis for increased dyspnea. December 29, 2018-patient continues on current therapy. Awaiting echocardiogram results to determine type of heart failure for proper treatment. December 30, 2018-continue Lasix at this time awaiting echocardiogram results. (2) Acute respiratory failure with hypoxia Is this a current diagnosis for this admission?: Yes Plan: Patient be continued on BiPAP therapy as long as required for maintenance of adequate oxygenation. He will be given supplemental oxygen and will perform required to maintain an adequate O2 saturation throughout his hospital course. His O2 sat will be monitored on a regular basis with vital signs. December 29, 2018-resolved December 30, 2018-resolved (3) Elevated troponin I level Is this a current diagnosis for this admission?: Yes Plan: Patient's serum troponin levels will be followed on a serial basis as well his CPK and CK-MB. December 29, 2018-trending down stable. December 30, 2018-resolved (4) Sciatica Is this a current diagnosis for this admission?: Yes Plan: December 29, 2018-patient complaining of pain from his left hip migrating down his left leg to the foot with tingling sensation into foot. At this time place patient on Lyrica 50 mill grams p.o. twice daily. Titrate to effect December 30, 2018-improved with addition of Lyrica. Continue to follow - Time Time Spent with patient: 15-24 minutes - Inpatient Certification Based on my medical assessment, after consideration of the patient's lesia rbidities, presenting symptoms, or acuity I expect that the services needed warrant INPATIENT care.: Yes I certify that my determination is in accordance with my understanding of Medicare's requirements for reasonable and necessary INPATIENT services [42 CFR 412.3e].: Yes Medical Necessity: Other - IV Lasix, await echocardiogram
--- NOTE | 2018-12-30 14:08 | XCELERA REPORT ---
[address] [address] Transthoracic Echocardiogram Report Name: MELODY SANCHEZ Age: 53 yrs Gender: Male : 1965 Patient Status: Inpatient Patient Location: [address] [place], [place] [address] Study Date: 12/28/2018 09:35 AM Height: 73 in Weight: 353 lb BSA: 2.7 m2 Procedure: A two-dimensional transthoracic echocardiogram with color flow and Doppler was performed. The study was technically difficult with many images being suboptimal in quality. The study was technically limited with all images being suboptimal in quality. Reason For Study: Acute pulmonary edema with CHF History: Acute pulmonary edema with CHF. Ordering Physician: PIPAP ANGULO Performed By: Cassie Bell Interpretation Summary The left ventricle is normal in size. There is moderate concentric left ventricular hypertrophy. LV EF is > than 60% The left ventricular ejection fraction is within normal limits. Doppler measurements suggest impaired left ventricular relaxation, which is associated with grade I/IV or mild diastolic dysfunction The left ventricular wall motion is normal. There is no thrombus. Cannot assess ASD,VSD,or PFO. The right ventricle is grossly normal size. The right ventricle is not well visualized secondary to technical limitations The right atrium is normal. Right atrium not well visualized secondary to technical limitations The left atrial size is normal. There is no evidence of mitral valve prolapse. There is no vegetation seen on the mitral valve. There is no mitral valve stenosis. There is a trace to mild amount of mitral regurgitation There is no aortic valvular vegetation. There is no aortic valve stenosis There is no LVOT obstruction. There is a trace amount of aortic regurgitation There is no tricuspid stenosis. There is a trace amount of tricuspid regurgitation Unable to calculate RVSP due to insufficient TR jet. There is no pulmonic valvular regurgitation. The aortic root is normal size. The inferior vena cava was not visualized There is no pericardial effusion. MMode/2D Measurements & Calculations RVDd: 4.0 cm LVIDd: 5.8 cm FS: 40.0 % Ao root diam: 3.5 cm IVSd: 1.4 cm LVIDs: 3.5 cm EDV(Teich): 164.3 ml Ao root area: 9.7 cm2 LVPWd: 1.4 cm ESV(Teich): 49.4 ml LA dimension: 4.2 cm EF(Teich): 69.9 % Doppler Measurements & Calculations MV E max grecia: MV dec time: Ao V2 max: LV V1 max P.9 cm/sec 0.23 sec 118.8 cm/sec 2.5 mmHg MV A max grecia: Ao max P.6 mmHg LV V1 max: 95.8 cm/sec 78.8 cm/sec MV E/A: 0.86 PA V2 max: 83.4 cm/sec PA max P.8 mmHg Left Ventricle The left ventricle is normal in size. There is moderate concentric left ventricular hypertrophy. LV EF is > than 60%. The left ventricular ejection fraction is within normal limits. Doppler measurements suggest impaired left ventricular relaxation, which is associated with grade I/IV or mild diastolic dysfunction. The left ventricular wall motion is normal. There is no thrombus. Cannot assess ASD,VSD,or PFO. Right Ventricle The right ventricle is grossly normal size. The right ventricle is not well visualized secondary to technical limitations. Atria The right atrium is normal. Right atrium not well visualized secondary to technical limitations. The left atrial size is normal. Mitral Valve There is no evidence of mitral valve prolapse. There is no vegetation seen on the mitral valve. There is no mitral valve stenosis. There is a trace to mild amount of mitral regurgitation. Aortic Valve There is no aortic valvular vegetation. There is no aortic valve stenosis. There is no LVOT obstruction. There is a trace amount of aortic regurgitation. Tricuspid Valve There is no tricuspid stenosis. There is a trace amount of tricuspid regurgitation. Unable to calculate RVSP due to insufficient TR jet. Pulmonic Valve There is no pulmonic valvular stenosis. There is no pulmonic valvular regurgitation. Great Vessels The aortic root is normal size. The inferior vena cava was not visualized. Effusions There is no pericardial effusion. : PIPPA ANGULO > Ludivina Lopez
[2018-12-30] MEDS: NALBUPHINE HCL INJ 10 MG/1 ML AMPULE IV PRN ×2 (15:19→21:24)
[2018-12-31 04:37] LABS: HEMATOCRIT 34.1 % (37.9-51.0); HEMOGLOBIN 11.3 g/dL (13.5-17.0); MEAN CORPUSCULAR HEMOGLOBIN 29.6 pg (27.0-33.4); MEAN CORPUSCULAR HGB CONC 33.2 g/dL (32.0-36.0); MEAN CORPUSCULAR VOLUME 89 fl (80-97); PLATELET COUNT 325 10^3/uL (150-450); RED BLOOD COUNT 3.83 10^6/uL (4.35-5.55); RED CELL DISTRIBUTION WIDTH 16.7 % (11.5-14.0); WHITE BLOOD COUNT 10.8 10^3/uL (4.0-10.5)
[2018-12-31 04:56] LABS: ANION GAP 8 (5-19); BLOOD UREA NITROGEN 21 mg/dL (7-20); CARBON DIOXIDE 32 mmol/L (22-30); CHLORIDE 97 mmol/L (98-107); GLUCOSE 99 mg/dL (75-110); POTASSIUM 3.8 mmol/L (3.6-5.0)
[2018-12-31] MEDS: HEPARIN SOD (PORCINE) 5,000 UNIT/ML 1 ML VIAL SUBCUT SCH ×2 (05:43→15:30)
--- NOTE | 2018-12-31 09:05 | PDOC DISCHARGE SUMMARY ---
General - Admit/Disc Date/PCP Admission Date/Primary Care Provider: 12/28/18 04:19 MONE JOINER, Discharge Date: 12/31/18 - Discharge Diagnosis (1) Acute pulmonary edema with congestive heart failure Is this a current diagnosis for this admission?: Yes (2) Acute respiratory failure with hypoxia Is this a current diagnosis for this admission?: Yes (3) Elevated troponin I level Is this a current diagnosis for this admission?: Yes (4) Sciatica Is this a current diagnosis for this admission?: Yes - Additional Information Resuscitation Status: Full Code Discharge Diet: As Tolerated, Cardiac Discharge Activity: Activity As Tolerated, Balance Activity w/Rest, Weigh Daily Prescriptions: Furosemide [Lasix 20 mg Tablet] 20 mg PO QAM #30 tablet Lisinopril 20 mg PO DAILY #30 tablet Pregabalin [Lyrica 50 mg Capsule] 50 mg PO BID #60 capsule Home Medications: Furosemide [Lasix 20 mg Tablet] 20 mg PO QAM #30 tablet 12/31/18 Lisinopril 20 mg PO DAILY #30 tablet 12/31/18 Pregabalin [Lyrica 50 mg Capsule] 50 mg PO BID #60 capsule 12/31/18 History of Present Illness History of Present Illness: MELODY SANCHEZ is a 53 year old male who was admitted for acute pulmonary edema Hospital Course Hospital Course: Patient was admitted for acute pulmonary edema and acute respiratory failure with hypoxia. Patient was placed on medical surgical floor received IV Lasix and an echocardiogram. Echocardiogram shows ejection fraction greater than 60%. Patient also had pulmonary edema which shows a acute diastolic left-sided heart failure. Patient is improved sufficiently at this time patient also complained of pain radiating from his left hip down to his feet suggestive of sciatica. I placed patient on Lyrica given grams p.o. twice daily and will continue this on outpatient basis. I will continue patient on Lasix 20 mill grams p.o. daily and patient will follow up with cardiology in 1 week. Patient is agreement with plan of care. Physical Exam Vital Signs: Temp Pulse Resp BP Pulse Ox 98.6 F 70 16 141/82 H 98 12/31/18 07:45 12/31/18 07:45 12/31/18 07:45 12/31/18 07:45 12/31/18 07:45 Intake & Output 12/30/18 12/31/18 01/01/19 06:59 06:59 06:59 Intake Total 1066 2210 Output Total 3700 4000 Balance -2634 -9930 Weight 151.5 kg 150.2 kg General appearance: PRESENT: no acute distress, well-developed, well-nourished Head exam: PRESENT: atraumatic, normocephalic Eye exam: PRESENT: conjunctiva pink, EOMI, PERRLA. ABSENT: scleral icterus Ear exam: PRESENT: normal external ear exam Mouth exam: PRESENT: moist, tongue midline Neck exam: ABSENT: carotid bruit, JVD, lymphadenopathy, thyromegaly Respiratory exam: PRESENT: clear to auscultation emma. ABSENT: rales, rhonchi, wheezes Cardiovascular exam: PRESENT: RRR. ABSENT: diastolic murmur, rubs, systolic murmur Pulses: PRESENT: normal dorsalis pedis pul Vascular exam: PRESENT: normal capillary refill GI/Abdominal exam: PRESENT: normal bowel sounds, soft. ABSENT: distended, guarding, mass, organolmegaly, rebound, tenderness Rectal exam: PRESENT: deferred Extremities exam: PRESENT: full ROM. ABSENT: calf tenderness, clubbing, pedal edema Neurological exam: PRESENT: alert, awake, oriented to person, oriented to place, oriented to time, oriented to situation, CN II-XII grossly intact. ABSENT: motor sensory deficit Psychiatric exam: PRESENT: appropriate affect, normal mood. ABSENT: homicidal i deation, suicidal ideation Skin exam: PRESENT: dry, intact, warm. ABSENT: cyanosis, rash Results Laboratory Results: 12/31/18 03:55 12/31/18 03:55 12/31/18 12/31/18 03:55 03:55 WBC 10.8 H RBC 3.83 L Hgb 11.3 L Hct 34.1 L MCV 89 MCH 29.6 MCHC 33.2 RDW 16.7 H Plt Count 325 Sodium 137.4 Potassium 3.8 Chloride 97 L Carbon Dioxide 32 H Anion Gap 8 BUN 21 H Creatinine 1.00 Est GFR ( Amer) > 60 Est GFR (Non-Af Amer) > 60 Glucose 99 Calcium 9.0 Magnesium 2.1 12/28/18 12/28/18 12/28/18 02:25 09:21 09:21 Creatine Kinase 233 H CK-MB (CK-2) 1.56 Troponin I 0.117 0.107 NT-Pro-B Natriuret Pep 4660 H 12/28/18 12/28/18 12/28/18 14:45 14:45 20:22 Creatine Kinase 181 H 157 CK-MB (CK-2) 1.06 Troponin I 0.066 NT-Pro-B Natriuret Pep 12/28/18 20:22 Creatine Kinase CK-MB (CK-2) 0.75 Troponin I 0.056 NT-Pro-B Natriuret Pep Impressions: Chest X-Ray 12/28/18 02:27 IMPRESSION: 1. Right basilar airspace opacity concerning for pneumonia. Continued radiographic follow-up to resolution recommended. 2. Cardiomegaly. Qualifiers - * PATIENT BEING DISCHARGED WITH ANY OF THE FOLLOWING DIAGNOSIS: No Acute Heart Failure - Is this a Heart Failure Patient?: Yes Documentation of LVEF assessment?: Yes LVEF < 40%?: No- if no continue to question #3 3. Anticoagulant therapy for permanect/persistent/paraoxysmal Afib or Aflutter: N/A Follow-up Appointment scheduled within 7 days?: Yes Plan Time Spent: Greater than 30 Minutes
--- NOTE | 2018-12-31 09:07 | ADVANCED CARE ---
- Diagnosis (1) Acute pulmonary edema with congestive heart failure Diagnosis Current: Yes (2) Acute respiratory failure with hypoxia Diagnosis Current: Yes (3) Elevated troponin I level Diagnosis Current: Yes (4) Sciatica Diagnosis Current: Yes Attendance: Myself and patient Resuscitation Status: Full Code Discussion: Discussed with patient plan of care. This time placed patient on 20 mg Lasix p.o. daily he will follow-up with his welder operator of choice within 1 week. He will also see Dr. Davis as necessary. Patient had ejection fraction of greater than 60% on echocardiogram. Patient is prove well at this time patient also has new onset of sciatica from the left hip to his foot which I placed him on Lyrica. Patient is in agreement with plan of care. Care Planning Goals: 1-Lasix 20 minutes p.o. daily until follow-up with cardiology 2-Lyrica 50 mill grams p.o. twice daily 3-follow-up with welder operator of choice 4-follow-up Dr. Davis as necessary Time Spent: 15 minutes
[2018-12-31] MEDS: PREGABALIN 50 MG CAPSULE PO SCH (09:38)
[2018-12-31] MEDS: FAMOTIDINE 20 MG TABLET PO SCH (09:38)
[2018-12-31] MEDS: LISINOPRIL 10 MG TABLET PO SCH (09:38)
[2018-12-31] MEDS: CARVEDILOL 6.25 MG TABLET PO SCH (09:38)
[2018-12-31] MEDS: FUROSEMIDE INJ/PF 40 MG/4 ML SDV IV SCH (09:39)
[2018-12-31] MEDS: DOCUSATE SODIUM 100 MG CAPSULE PO SCH (09:47)
[2018-12-31 14:35] VITALS: BP 161/93
== END 2018-12-31 16:44 | disposition home or self-care (01) | DRG 291 ==
LOC: ER 02:18 → EH 04:19 → 4N 05:27
PROVIDERS: ADMIT Emergency Medicine; ATTEND Emergency Medicine
DX: I11.0 Hypertensive heart disease with heart failure (principal); J96.01 Acute respiratory failure with hypoxia; I50.31 Acute diastolic (congestive) heart failure; J44.1 Chronic obstructive pulmonary disease with (acute) exacerbation; M54.32 Sciatica, left side
CPT/HCPCS: 36415; 36600; 71045; 80048; 80053; 80307; 82550; 82553; 82803; 83735; 83880; 84484; 85025; 85027; 93005; 93010; 93306; 94640; 94660; 96374; 99291; J1644; J1940; J2300; J2930; J3490; J7620

== ENCOUNTER 2019-02-03 11:18 | Emergency (ER) | payer SELFPAY ==
--- NOTE | 2019-02-03 11:54 | ER Document Report ---
ED Medical Screen (RME) - General Chief Complaint: Blood Pressure Problem Stated Complaint: HIGH BLOOD PRESSURE SYMPTONS Time Seen by Provider: 02/03/19 11:36 Primary Care Provider: MONE JOINER DO [Primary Care Provider] - Follow up as needed Notes: Patient is a 53-year-old male with a history of type 2 diabetes, hypertension, obesity, COPD, kidney injury, CHF who presents to emergency department with a chief complaint of high blood pressure. Patient states that he was at [employer] this morning for his disability appointment and was told he had elevated blood pressure of 220 systolic. Patient reports he has had blurred vision, lightheadedness, dry mouth and slight headache. at the bedside reports that the patient started to have trouble with his speech yesterday afternoon around 2 PM and has been more forgetful. Patient complains of bilateral hand shaking. Patient has been taking lisinopril 20 mg daily, and does report having his dose this morning. Patient also takes Lasix 20 mg daily. Patient reports he is supposed to take 7-8 other medications but cannot afford this as he did lose insurance within the past month. Patient also complains of left hip pain that radiates into his leg. Patient reports this feels like his sciatica. TRAVEL OUTSIDE OF THE [place] IN LAST 30 DAYS: No - Related Data Allergies/Adverse Reactions: shellfish derived Allergy (Severe, Verified 02/03/19 11:22) Past Medical History - Past Medical History Cardiac Medical History: Reports: Hx Congestive Heart Failure, Hx Hypercholesterolemia, Hx Hypertension Denies: Hx Coronary Artery Disease, Hx Heart Attack Pulmonary Medical History: Reports: Hx COPD, Hx Pneumonia Denies: Hx Asthma, Hx Bronchitis Neurological Medical History: Denies: Hx Cerebrovascular Accident, Hx Seizures Endocrine Medical History: Reports: Hx Diabetes Mellitus Type 2. Denies: Hx Diabetes Mellitus Type 1, Hx Hyperthyroidism, Hx Hypothyroidism Renal/ Medical History: Denies: Hx Peritoneal Dialysis GI Medical History: Reports: Hx Gastroesophageal Reflux Disease. Denies: Hx Cirrhosis, Hx Crohn's Disease, Hx Hepatitis, Hx Ulcerative Colitis Musculoskeltal Medical History: Denies Hx Arthritis, Denies Hx Gout Skin Medical History: Denies Hx Eczema, Denies Hx Psoriasis Psychiatric Medical History: Denies: Hx Depression Infectious Medical History: Denies: Hx Hepatitis - Immunizations Hx Diphtheria, Pertussis, Tetanus Vaccination: - UNSURE Physical Exam - Vital signs Vitals: Temp Pulse Resp BP Pulse Ox 98.1 F 70 18 180/102 H 97 02/03/19 11:25 02/03/19 11:25 02/03/19 11:02/03/19 11:25 02/03/19 11:25 - Respiratory Respiratory status: No respiratory distress Chest status: Nontender Breath sounds: Normal Chest palpation: Normal - Abdominal Inspection: Obese Distension: No distension Bowel sounds: Normal Tenderness: Nontender Organomegaly: No organomegaly Course - Re-evaluation Re-evalutation: 02/03/19 11:53 Patient's difficulty speaking and forgetfulness started at 2 PM yesterday. Patient is outside of the time frame for [employer]ytics. We will continue with the stroke work-up to include CT of the head. I have greeted and performed a rapid initial assessment of this patient. A comprehensive ED assessment and evaluation of the patient, analysis of test results and completion of the medical decision making process will be conducted by additional ED providers. - Vital Signs Vital signs: Temp Pulse Resp BP Pulse Ox 98.1 F 70 18 175/101 H 97 02/03/19 11:25 02/03/19 11:25 02/03/19 11:25 02/03/19 11:29 02/03/19 11:25 Doctor's Discharge - Discharge Referrals: MONE JOINER DO [Primary Care Provider] - Follow up as needed
[2019-02-03 12:36] LABS: ABSOLUTE BASOPHILS # (AUTO) 0.2 10^3/uL (0.0-0.2); ABSOLUTE EOSINOPHILS # (AUTO) 0.5 10^3/uL (0.0-0.6); ABSOLUTE LYMPHOCYTES (AUTO) 2.8 10^3/uL (0.5-4.7); ABSOLUTE MONOCYTES (AUTO) 0.7 10^3/uL (0.1-1.4); ABSOLUTE NEUT (AUTO) 6.6 10^3/uL (1.7-8.2); BASOPHILS % (AUTO) 1.5 % (0-2); EOSINOPHILS % (AUTO) 4.7 % (0-6); HEMATOCRIT 38.5 % (37.9-51.0); HEMOGLOBIN 12.8 g/dL (13.5-17.0); LYMPHOCYTES % (AUTO) 26.2 % (13-45); MEAN CORPUSCULAR HEMOGLOBIN 30.2 pg (27.0-33.4); MEAN CORPUSCULAR HGB CONC 33.3 g/dL (32.0-36.0); MEAN CORPUSCULAR VOLUME 91 fl (80-97); MONOCYTES % (AUTO) 6.1 % (3-13); PLATELET COUNT 340 10^3/uL (150-450); RED BLOOD COUNT 4.25 10^6/uL (4.35-5.55); RED CELL DISTRIBUTION WIDTH 16.5 % (11.5-14.0); SEGMENTED NEUTROPHILS % (AUTO) 61.5 % (42-78); TOTAL CELLS COUNTED % (AUTO) 100 %; WHITE BLOOD COUNT 10.8 10^3/uL (4.0-10.5)
[2019-02-03 12:42] LABS: INTERNATIONAL RATION (INR) 0.97; PROTHROMBIN TIME 12.9 SEC (11.4-15.4)
[2019-02-03 12:43] LABS: PARTIAL THROMBOPLASTIN TIME 31.3 SEC (23.5-35.8)
[2019-02-03 12:50] LABS: APPEARANCE,URINE CLEAR; BILIRUBIN,URINE NEGATIVE (NEGATIVE); COLOR,URINE YELLOW; GLUCOSE, URINE NEGATIVE (NEGATIVE); KETONES,URINE NEGATIVE (NEGATIVE); LEUKOCYTE ESTERASE,URINE NEGATIVE (NEGATIVE); NITRITE,URINE NEGATIVE (NEGATIVE); PROTEIN,URINE NEGATIVE (NEGATIVE); UROBILINOGEN,URINE NEGATIVE mg/dL (<2.0)
[2019-02-03 12:52] LABS: ALBUMIN 4.1 g/dL (3.5-5.0); ALKALINE PHOSPHATASE 66 U/L (38-126); ANION GAP 10 (5-19); ASPARTATE AMINO TRANSFERASE 21 U/L (17-59); BILIRUBIN,DIRECT 0.2 mg/dL (0.0-0.4); BILIRUBIN,TOTAL 0.4 mg/dL (0.2-1.3); BLOOD UREA NITROGEN 17 mg/dL (7-20); CALCIUM 9.6 mg/dL (8.4-10.2); CARBON DIOXIDE 26 mmol/L (22-30); CHLORIDE 103 mmol/L (98-107); GLUCOSE 79 mg/dL (75-110); POTASSIUM 4.9 mmol/L (3.6-5.0); TOTAL PROTEIN 7.1 g/dL (6.3-8.2)
--- NOTE | 2019-02-03 13:22 | RADIOLOGY REPORT (SQ) ---
EXAM DESCRIPTION: CHEST 2 VIEWS COMPLETED DATE/TIME: 02/03/2019 1:11 pm REASON FOR STUDY: sob COMPARISON: 12/28/2018 TECHNIQUE: Frontal and lateral radiographic views of the chest acquired. NUMBER OF VIEWS: Two view. LIMITATIONS: None. FINDINGS: LUNGS AND PLEURA: No pneumothorax. Mild left lateral basilar scarring. No consolidation or pleural effusion. MEDIASTINUM AND HILAR STRUCTURES: Stable. HEART AND VASCULAR STRUCTURES: Stable. BONES: No acute findings. HARDWARE: None in the chest. OTHER: No other significant finding. IMPRESSION: No consolidation or pleural effusion. TECHNICAL DOCUMENTATION: JOB ID: [id number] [employer]- All Rights Reserved Reading location - IP/workstation name: [employer]
--- NOTE | 2019-02-03 13:30 | ER Document Report ---
Entered by RADHA MAIER SCRIBE 02/03/19 [id number] Acting as scribe for:KETTY SANCHEZ MD ED General - General Chief Complaint: Blood Pressure Problem Stated Complaint: HIGH BLOOD PRESSURE SYMPTONS Time Seen by Provider: 02/03/19 11:36 Primary Care Provider: MONE JOINER DO [Primary Care Provider] - Follow up as needed Mode of Arrival: Ambulatory Information source: Patient Notes: Patient is a 53-year-old male who presents to the emergency department today with complaints of elevated blood pressures earlier today while at a disability evaluation. Patient states he was at [facility] where they perform initial disability evaluations and he was found to have an elevated blood pressure. Of note, the patient states that he is not taking all of the medications he is prescribed because he cannot afford them. Patient is taking Lasix and lisinopril but he does not know what other medications he is prescribed that he has not filled. Patient also has type 2 diabetes and is on no medication for that. Patient states that his disability evaluation today is for sciatica. Thus, and I was unable to examine him prior to him having a CT scan of the head and a chest x-ray. TRAVEL OUTSIDE OF THE [place] IN LAST 30 DAYS: No - Related Data Allergies/Adverse Reactions: shellfish derived Allergy (Severe, Verified 02/03/19 11:22) Past Medical History - General Information source: Patient - Social History Smoking Status: Never Smoker Cigarette use (# per day): No Frequency of alcohol use: None Drug Abuse: None Lives with: Family Family History: Reviewed & Not Pertinent, CAD, DM, Hypertension, Malignancy Patient has suicidal ideation: No Patient has homicidal ideation: No - Past Medical History Cardiac Medical History: Reports: Hx Congestive Heart Failure, Hx Hypercholesterolemia, Hx Hypertension Pulmonary Medical History: Reports: Hx COPD, Hx Pneumonia Endocrine Medical History: Reports: Hx Diabetes Mellitus Type 2 GI Medical History: Reports: Hx Gastroesophageal Reflux Disease - Immunizations Hx Diphtheria, Pertussis, Tetanus Vaccination: - UNSURE Review of Systems - Review of Systems Constitutional: No symptoms reported EENT: No symptoms reported Cardiovascular: See HPI, Other - high blood pressure Respiratory: No symptoms reported Gastrointestinal: No symptoms reported Genitourinary: No symptoms reported Male Genitourinary: No symptoms reported Musculoskeletal: No symptoms reported Skin: No symptoms reported Hematologic/Lymphatic: No symptoms reported Neurological/Psychological: No symptoms reported -: Yes All other systems reviewed and negative Physical Exam - Vital signs Vitals: Temp Pulse Resp BP Pulse Ox 98.1 F 70 18 180/102 H 97 02/03/19 11:25 02/03/19 11:25 02/03/19 11:25 02/03/19 11:02/03/19 11:25 - Notes Notes: Physical Exam: General: Alert, appears well. Obese. HEENT: Normocephalic. Atraumatic. PERRL. Extraocular movements intact. Oropharynx clear. Neck: Supple. Non-tender. Respiratory: No respiratory distress. Clear and equal breath sounds bilaterally. Cardiovascular: Regular rate and rhythm. Abdominal: Obese. Non-tender. No distension. Normal Bowel Sounds. Back: No gross abnormalities. Extremities: Moves all four extremities. Upper extremities: Normal inspection. Normal ROM. Lower extremities: Normal inspection. No edema. Normal ROM. Neurological: Normal cognition. AAOx4. Normal speech. Psychological: Normal affect. Normal Mood. Skin: Warm. Dry. Normal color. Course - Re-evaluation Re-evalutation: 02/03/19 15:23 The patient reports that he has type 2 diabetes, is not taking any medication for. His blood sugar today is 79. The patient reports that he has lost 60 pounds by changing his diet and cutting out to liter sodas. It would appear that he has successfully improved his insulin resistance and glucose control through diet modifications and does not require medication at this time. His blood pressure is down to 146/96 with no interventions. - Vital Signs Vital signs: Temp Pulse Resp BP Pulse Ox 98.1 F 70 18 175/101 H 97 02/03/19 11:25 02/03/19 11:25 02/03/19 11:25 02/03/19 11:29 02/03/19 11:25 - Laboratory Result Diagrams: 02/03/19 12:12 02/03/19 12:12 Laboratory results interpreted by me: 02/03/19 12:12 WBC 10.8 H RBC 4.25 L Hgb 12.8 L RDW 16.5 H - Diagnostic Test Radiology reviewed: Image reviewed, Reports reviewed - Chest x-ray is unremarkable. CT scan of the head is unremarkable. - EKG Interpretation by [facility] EKG shows normal: Sinus rhythm, [place], Intervals, QRS Complexes, ST-T Waves Rate: Normal - 54 [place]/QRS: RBBB - Incomplete right bundle branch block Heart block present: 1st Degree When compared to previous EKG there are: No significant change Discharge - Discharge Clinical Impression: High blood pressure Qualifiers: Hypertension type: essential hypertension Qualified Code(s): I10 - Essential (primary) hypertension Condition: Stable Disposition: HOME, SELF-CARE Additional Instructions: Your blood sugar today was completely normal. It sounds like your change in diet has paid off and you no longer have diabetes that needs medical treatment. Continue your weight loss as you have been doing. Add the hydralazine as prescribed to get better control of your blood pressure. Get a blood pressure cuff in order to check your pressure at home. Follow-up with a local primary care provider next week for recheck if your blood pressure does not stay better controlled. RETURN TO THE EMERGENCY ROOM IF ANY NEW OR WORSENING SYMPTOMS. Prescriptions: Hydralazine HCl [Apresoline 10 mg Tablet] 10 mg PO TID #90 tab Referrals: MONE JOINER DO [Primary Care Provider] - Follow up as needed Scribe Attestation: 02/03/19 13:40 I personally performed the services described in the documentation, reviewed and edited the documentation which was dictated to the scribe in my presence, and it accurately records my words and actions. I personally performed the services described in the documentation, reviewed and edited the documentation which was dictated to the scribe in my presence, and it accurately records my words and actions.
--- NOTE | 2019-02-03 13:52 | RADIOLOGY REPORT (SQ) ---
EXAM DESCRIPTION: CT HEAD WITHOUT COMPLETED DATE/TIME: 02/03/2019 1:31 pm REASON FOR STUDY: difficulty speaking, lightheadedness COMPARISON: None. TECHNIQUE: Axial images acquired through the brain without intravenous contrast. Images reviewed wit h bone, brain and subdural windows. Images stored on PACS. All CT scanners at this facility use dose modulation, iterative reconstruction, and/or weight based d osing when appropriate to reduce radiation dose to as low as reasonably achievable (ALARA). [facility]: Dose Right [facility]: CareDose [facility]: Dose Right [facility]: Teradose 4D [facility]: Smart [place] RADIATION DOSE: CT Rad equipment meets quality standard of care and radiation dose reduction techniq ues were employed. CTDIvol: 53.2 mGy. DLP: 1070 mGy-cm.. LIMITATIONS: None. FINDINGS: VENTRICLES: Normal size and contour. CEREBRUM: No masses. No hemorrhage. No midline shift. Age appropriate white matter. No evidence for a cute infarction. CEREBELLUM: No masses. No hemorrhage. No alteration of density. No evidence for acute infarction. EXTRA-AXIAL SPACES: No fluid collections. ORBITS AND GLOBE: No intra- or extraconal masses. Normal contour of globe without masses. CALVARIUM: No fracture. PARANASAL SINUSES: No fluid or mucosal thickening. SOFT TISSUES: No mass or hematoma. OTHER: No other significant finding. IMPRESSION: NO ACUTE INTRACRANIAL FINDINGS. EVIDENCE OF ACUTE STROKE: NO. TECHNICAL DOCUMENTATION: JOB ID: [id number] [id number] Quality ID # [id number]: Final reports with documentation of one or more dose reduction techniques (e.g., Au tomated exposure control, adjustment of the mA and/or kV according to patient size, use of iterative reconstruction technique) 2010 [employer]- All Rights Reserved Reading location - IP/workstation name: [email or web address]
[2019-02-03 16:10] VITALS: BP 146/96
--- NOTE | 2019-02-03 19:45 | EKG REPORT ---
SEVERITY:- ABNORMAL ECG - SINUS RHYTHM FIRST DEGREE AV BLOCK INCOMPLETE RIGHT BUNDLE BRANCH BLOCK : Confirmed by: Ludivina Lopez MD 03-Feb-2019 19:45:41
== END 2019-02-03 16:19 | disposition home or self-care (01) ==
LOC: ER 11:18
DX: I11.0 Hypertensive heart disease with heart failure (principal); I50.9 Heart failure, unspecified; E11.9 Type 2 diabetes mellitus without complications; J44.9 Chronic obstructive pulmonary disease, unspecified; T50.906A Underdosing of unspecified drugs, medicaments and biological substances, initial encounter; Z91.120 Patient's intentional underdosing of medication regimen due to financial hardship; Z91.14 Patient's other noncompliance with medication regimen; I45.10 Unspecified right bundle-branch block; I44.0 Atrioventricular block, first degree; R63.4 Abnormal weight loss; E66.9 Obesity, unspecified; R51 Headache; H53.8 Other visual disturbances; R42 Dizziness and giddiness; R68.2 Dry mouth, unspecified; Z79.899 Other long term (current) drug therapy; Z91.013 Allergy to seafood
CPT/HCPCS: 36415; 70450; 71046; 80053; 81001; 83880; 85025; 85610; 85730; 93005; 93010; 99284